=== PATIENT | female | born 1980 | race Caucasian/White ===

== ENCOUNTER 2023-07-15 17:44 | Emergency (ER) | payer OTHER, SELFPAY ==
[2023-07-15 17:46] VITALS: BP 118/78; PULSE 88; RESP 18; TEMP 36.8; O2SAT 97; BMI 28.3
--- NOTE | 2023-07-15 17:47 | NURSING ---
NO OLD EKGS
--- NOTE | 2023-07-15 18:10 | EKG12_ITS ---
Test Reason : PALPS/CP Blood Pressure : / mmHG Vent. Rate : 075 BPM Atrial Rate : 075 BPM P-R Int : 170 ms QRS Dur : 078 ms QT Int : 392 ms P-R-T Axes : 033 059 056 degrees QTc Int : 437 ms Normal sinus rhythm Septal infarct , age undetermined Abnormal ECG Confirmed by SHER MUSA, FELIBERTO ([id number]), news video editor NILDA KHAN ([id number]) on 07/17/2023 12:06:50 PM Referred By: TANVIR Confirmed By:FELIBERTO OLIVAREZ MD
--- NOTE | 2023-07-15 18:11 | ED.VIS.CHEST ---
HPI History of Present Illness Chief Complaint: Chest Pain Informant: patient and spouse/S.O. Narrative Narrative: Very pleasant 43-year-old female presenting to the emergency room with chest pain. Patient states that intermittently over the past week and more so in the past 48 hours she has had episodes where she will abruptly become weak pale and need to sit down. She states her heart rate dips into the 30s as monitored on a home pulse oximeter. She states that this morning was the first time she felt a chest heaviness with her symptoms. No syncope. She denies taking any medications. No activity in particular brings this out. Patient denies any caffeine or alcohol intake. She notes that she has been sleeping okay. She has been under stress. PFSH PFSH Home Medications metoprolol succinate 25 mg tablet,extended release 24 hr 25 mg PO DAILY #20 tabs 07/15/23 [Rx Last Taken Unknown] potassium chloride 20 mEq tablet,extended release 40 meq (2 x 20 mEq) PO DAILY #10 tabs 07/15/23 [Rx Last Taken Unknown] Allergy/AdvReac Type Severity Reaction Status Date / Time No Known Allergies Allergy Verified 07/15/23 17:46 Surgical History H/O: hysterectomy Social History Smoking Status: Never smoker ROS ROS ED Constitutional Constitutional ED: Denies chills, fever(s) or weight loss Eyes Eyes: Denies change in vision or diplopia ENT ENT ED: Denies ear pain, rhinorrhea or sore throat Cardiovascular Cardiovascular: Reports chest pain and other Details: Near syncope bradycardia ; Denies orthopnea, palpitations or racing heartbeat Respiratory/Chest Respiratory/Chest: Denies cough, dyspnea or orthopnea Gastrointestinal Gastrointestinal: Denies abdominal pain, diarrhea, nausea or vomiting Genitourinary Genitourinary ED: Denies dysuria, hematuria or urinary frequency Musculoskeletal Musculoskeletal: Denies arthralgias or myalgias Integumentary Denies abscess or rash Neurologic Neurologic: Denies headache(s) or weakness Psychiatric Psychiatric: Denies anxiety, depression, suicidal ideation or suicidal thoughts Endocrine Endocrinology: Denies polydipsia, polyphagia or polyuria Allergic/Immunologic Allergic/Immunologic ED: Denies mouth swelling, tongue swelling or urticaria EXAM Physical Exam Const Vital Signs: 07/15/23 17:46 07/15/23 18:01 07/15/23 18:45 Temperature 98.2 F Temperature Source Temporal Pulse Rate 88 70 Respiratory Rate 18 16 Respiratory Effort Normal Blood Pressure 118/78 116/48 L Blood Pressure Mean 91 70 Pulse Ox 97 99 Oxygen Delivery Method Room Air Room Air 07/15/23 19:16 Temperature Temperature Source Pulse Rate 77 Respiratory Rate 17 Respiratory Effort Blood Pressure 129/63 H Blood Pressure Mean 85 Pulse Ox 98 Oxygen Delivery Method Room Air Positive well nourished and well developed General Appearance ED: well developed HEENT Reports normocephalic, head/scalp atraumatic and moist mucous membranes Eyes PERRL and EOMs intact bilaterally Neck no lymphadenopathy, supple and no JVD Resp normal respiratory effort and clear to auscultation bilaterally Cardio regular rate, regular rhythm and no murmurs GI normal to inspection, nondistended, normoactive bowel sounds and non-tender Palpation: soft Back/Spine no CVA tenderness and normal ROM Extremity normal to inspection General Extremety ED: Negative for edema General Extremity: Negative for edema Neuro oriented x3 and CN's II-XII intact bilaterally Sensorium / Orientation: alert Motor Exam: strength 5/5 throughout Psych mental status grossly normal Mood & Affect: Negative for depressed or tearful Skin no rashes or lesions noted and no wounds MDM MDM MDM Narrative Medical decision making narrative: Patient initially assessed in a sinus rhythm. She then changed her rhythm to a ventricular bigeminy and then ventricular trigeminy. She was asymptomatic during the trigeminy but symptomatic during bigeminy. However her blood pressure was not changed she states that she felt weaker and felt cool and clammy. Troponin is at 4. CBC normal. BMP shows a potassium of 3.4 TSH 2.23. Vitaped interpretation of the chest x-ray is no acute process. Patient's potassium will be replaced. I spoke with cardiology who recommends outpatient stress test and the administration of metoprolol 25 mg daily. History & Record Review Discussion w/independent historian: Patient and Significant other Lab Data Attestation: I reviewed the patient's lab results. Labs: Laboratory Results - last 24 hr 07/15/23 17:55 WBC 9.0 RBC 4.71 Hgb 14.3 Hct 43.9 MCV 93.2 MCH 30.4 MCHC 32.6 RDW Std Deviation 44.3 H RDW Coeff of Chantel 13.0 Plt Count 406 MPV 9.4 Immature Gran % (Auto) 0.200 Neut % (Auto) 71.5 H Lymph % (Auto) 17.8 L Aiken % (Auto) 9.2 Eos % (Auto) 0.7 Baso % (Auto) 0.6 Absolute Neuts (auto) 6.4 Absolute Lymphs (auto) 1.60 Nucleated RBC % 0 Sodium 139 Potassium 3.4 L Chloride 107 Carbon Dioxide 29.0 Anion Gap 3 L BUN 15 Creatinine 0.76 Estim Creat Clear Calc 84.12 Est GFR (MDRD) Af Amer 108 Est GFR (MDRD) Non-Af 89 BUN/Creatinine Ratio 19.7 Glucose 98 Calcium 8.7 Magnesium 2.4 Troponin I High Sens 4 TSH 2.23 Radiography Diagnostic Testing: Clinical Impression(s) from Imaging Studies Chest X-Ray 07/15/23 18:20 IMPRESSION: No radiographic evidence of acute cardiopulmonary disease. Electronically Signed: Jay Cole MD at 18:57 EST , EKG Initial EKG: Attestation: I personally reviewed and interpreted this EKG as follows: Comments: Normal sinus rhythm with a ventricular rate of 75 bpm. Management Discussion w/another healthcare provider: Magazine Grinder Loader (Dr. Boyce (Cardiology)) Discharge Plan Triage Chief Complaint: Chest Pain Other Complaint: Palpitations ED Provider: Nain Hackett Dx/Rx/DC Orders Clinical Impression: Heart palpitations, Ventricular bigeminy, Chest pain, Acute hypokalemia Instructions: Ventricular Arrhythmia Prescriptions: New potassium chloride 20 mEq tablet extended release 40 meq PO DAILY Qty: 10 0RF metoprolol succinate 25 mg tablet extended release 24 hr 25 mg PO DAILY Qty: 20 0RF Primary Care Provider: Care Physician,No Primary Referrals: Ladarius Boyce MD [Med Staff - Active Staff] - As soon as possible Care Physician,No Primary [Primary Care Provider] - Disposition Disposition: Home, Self Care
--- NOTE | 2023-07-15 18:20 | RAD_ITS ---
INDICATION: chest pain EXAMINATION/TECHNIQUE: X-RAY - XR Chest 1 View COMPARISON: None. FINDINGS: Cardiac silhouette normal in size. No liam airspace consolidation is appreciated. There is some slight hazy opacity at the lower lungs which could reflect overlying soft tissue shadows. No pneumothorax. No pleural effusion. No adenopathy. No acute bony pathology. RAD/Chest 1 View (Portable) IMPRESSION: No radiographic evidence of acute cardiopulmonary disease. Electronically Signed: Jay Cole MD at 18:57 EST ,
[2023-07-15 18:29] LABS: Absolute Neutrophil Count 6.4 X10^3/uL (2.0-7.7); Basophil# 0.05 X10^3/uL; Basophil% 0.6 % (0-1); Eosinophil# 0.06 X10^3/uL; Eosinophils% 0.7 % (0-5); Hematocrit 43.9 % (37-47); Hemoglobin 14.3 g/dL (12.0-15.0); Lymphocyte % 17.8 % (19-41); Mean Corp Hgb Conc 32.6 g/dL (32-36); Mean Corpuscular Hgb 30.4 pg (27.0-32.0); Mean Corpuscular Volume 93.2 fL (81-99); Mean Platelet Vol. 9.4 fl (6.2-12.0); Monocyte# 0.83 X10^3/uL; Monocyte% 9.2 % (0-10); NRBC Flagged by Analyzer 0 % (0-5); Neutrophil # 6.42 X10^3/uL (2.7-7.7); Neutrophil % 71.5 % (47-70); Platelet Count 406 K/mm3 (150-450); RBC Distribution Width SD 44.3 fl (35.1-43.9); Red Blood Count 4.71 M/mm3 (4.2-5.4)
[2023-07-15 18:45] VITALS: BP 116/48; PULSE 70; RESP 16; O2SAT 99
[2023-07-15 18:50] LABS: Anion Gap 3 (5-15); BUN 15 mg/dL (7-18); BUN/Creat Ratio 19.7 RATIO (10-20); Calcium,Total 8.7 mg/dL (8.5-10.1); Chloride 107 mmol/L (98-107); Creatinine, Serum 0.76 mg/dL (0.55-1.02); EST Glomerular Filtration Rate 89 mL/min (>60); Est Glom Filt Rate - Afr Amer 108 mL/min (>60); Estimated Creatinine Clearance 84.12 ml/min; Glucose 98 mg/dL (74-106); Magnesium 2.4 mg/dL (1.6-2.6); Potassium 3.4 mmol/L (3.5-5.1); Sodium Level 139 mmol/L (136-145); Thyroid Stim Hormone (TSH) 2.23 uIU/mL (0.358-3.74); Troponin-I HS 4 pg/mL (3.0-54.0)
--- NOTE | 2023-07-15 18:59 | EKG12_ITS ---
Test Reason : CP Blood Pressure : / mmHG Vent. Rate : 077 BPM Atrial Rate : 077 BPM P-R Int : 168 ms QRS Dur : 078 ms QT Int : 410 ms P-R-T Axes : 051 068 074 degrees QTc Int : 463 ms Sinus rhythm with frequent Premature ventricular complexes Septal infarct , age undetermined Abnormal ECG Confirmed by SHER MUSA, FELIBERTO ([id number]), editor at large NILDA KHAN ([id number]) on 07/17/2023 12:11:30 PM Referred By: TANVIR Confirmed By:FELIBERTO OLIVAREZ MD
[2023-07-15 19:16] VITALS: BP 129/63; PULSE 77; RESP 17; O2SAT 98
--- NOTE | 2023-07-15 19:16 | NURSING ---
Pt assisted to ambulate to the bathroom. No dizziness noted with activity. Pt assisted back to bed.
[2023-07-15] MEDS: Potassium Chloride Oral Tablet 20 MEQ 40 MEQ PO (20:08)
[2023-07-15 20:24] VITALS: BP 109/57; PULSE 72; RESP 17; O2SAT 97
== END 2023-07-15 20:56 | disposition home or self-care (01) ==
PROVIDERS: Emergency Provider Emergency Medicine; Visit Provider Emergency Medicine
DX: R00.2 Palpitations (principal); E87.6 Hypokalemia; R07.9 Chest pain, unspecified; I49.8 Other specified cardiac arrhythmias; Z90.710 Acquired absence of both cervix and uterus
CPT/HCPCS: 71045; 80048; 83735; 84443; 84484; 85025; 93005; 99284; A4216

== ENCOUNTER → 2023-08-03 | Outpatient (CLI) | payer SELFPAY ==
[2023-08-03 13:22] LABS: Anion Gap 5 (5-15); BUN 9 mg/dL (7-18); BUN/Creat Ratio 15.3 RATIO (10-20); Calcium,Total 8.8 mg/dL (8.5-10.1); Chloride 109 mmol/L (98-107); Cholesterol 147 mg/dL (200); Creatinine, Serum 0.59 mg/dL (0.55-1.02); EST Glomerular Filtration Rate 119 mL/min (>60); Est Glom Filt Rate - Afr Amer 144 mL/min (>60); Glucose 86 mg/dL (74-106); High Density Lipoprotein 46 mg/dL; Sodium Level 141 mmol/L (136-145); Triglycerides 82 mg/dL; Very Low Density Lipoprotein 16 mg/dL (5-40)
== END | disposition home or self-care (01) ==
PROVIDERS: Referring Provider Internal Medicine Cardiovascular Disease; Visit Provider Internal Medicine Cardiovascular Disease
DX: R06.09 Other forms of dyspnea (principal); I49.3 Ventricular premature depolarization; R07.9 Chest pain, unspecified; E87.6 Hypokalemia; E78.5 Hyperlipidemia, unspecified; R00.2 Palpitations
CPT/HCPCS: 36415; 80048; 80061

== ENCOUNTER → 2023-08-07 | Outpatient (CLI) | payer SELFPAY, OTHER ==
--- NOTE | 2023-08-07 06:57 | ECHOD_ITS ---
Reason For Study: Chest Pain Procedure This was a 2D Doppler, Color Flow transthoracic echocardiogram. Exam performed in department. Left Ventricle Normal LV size. Left ventricular systolic function is normal. The estimated ejection fraction is 65 %. Stage 1 diastolic dysfunction. No regional wall motion abnormalities noted. Right Ventricle Normal RV size. Normal systolic function. Atria Normal left atrium. Normal right atrium. Patent foramen ovale. Mitral Valve Normal mitral valve. Tricuspid Valve Normal tricuspid valve. Aortic Valve Normal aortic valve. Trisinus/trileaflet aortic valve. Pulmonic Valve Normal pulmonic valve. Great Vessels Normal aortic root. The pulmonary artery is normal size. Normal inferior vena cava. Pericardium/Pleural No pericardial effusion. MMode/2D Measurements & Calculations LVIDd: 4.8 cm IVSd: 0.81 cm Ao root diam: 2.7 cm LVIDs: 3.2 cm LVPWd: 0.78 cm LA dimension: 3.3 cm RVDd: 3.3 cm FS: 32.1 % LAV(MOD-bp): 44.7 ml LVAd ap4: 22.6 cm2 SV(MOD-sp4): 39.1 ml LAV(MOD-bp) Indexed: 24.7 ml/m2 LVLd ap4: 7.0 cm LAV(MOD-sp2): 43.7 ml EDV(MOD-sp4): 62.0 ml LAV(MOD-sp4): 44.5 ml EDV(sp4-el): 62.4 ml LVAs ap4: 11.7 cm2 LVLs ap4: 5.2 cm ESV(MOD-sp4): 22.9 ml ESV(sp4-el): 22.1 ml EF(MOD-sp4): 63.0 % EF(sp4-el): 64.6 % SV(sp4-el): 40.3 ml LA A4 area: 17.0 cm2 RA A4 area: 12.0 cm2 TAPSE: 2.5 cm Time Measurements MV dec time: 0.25 sec Doppler Measurements & Calculations MV E max delio: 66.1 cm/sec Lat Peak E' Delio: 3.7 cm/sec Med Peak E' Delio: 11.8 cm/sec MV A max delio: 50.0 cm/sec E/E' lat: 18.0 E/E' med: 5.6 MV E/A: 1.3 MV V2 max: 73.5 cm/sec MV P1/2t max delio: 74.2 cm/sec Ao V2 max: 118.7 cm/sec MV max P.2 mmHg MV P1/2t: 87.0 msec Ao max P.6 mmHg MV V2 mean: 36.5 cm/sec MV dec slope: 249.9 cm/sec2 Ao V2 mean: 91.7 cm/sec MV mean P.66 mmHg Ao mean P.6 mmHg MV V2 VTI: 26.7 cm MVA(P1/2t): 2.5 cm2 Ao V2 VTI: 25.4 cm AV (velocity ratio): 0.86 LV V1 max: 113.6 cm/sec PA V2 max: 115.2 cm/sec LV V1 max P.2 mmHg PA V2 mean: 90.9 cm/sec LV V1 mean P.2 mmHg LV V1 mean: 84.7 cm/sec LV V1 VTI: 21.8 cm ECHO/Echo Complete Interpretation Summary Normal LV size. Left ventricular systolic function is normal. The estimated ejection fraction is 65 %. Stage 1 diastolic dysfunction. Patent foramen ovale. Structurally normal valves. Ordering Physician: Ladarius Boyce Referring Physician: Ladarius Boyce Performed By: Justice Vallecillo RCS
--- NOTE | 2023-08-07 16:02 | STRESSREP ---
Stress Test Report Exercise myocardial perfusion stress test. 43-year-old lady with a history of chest pain and palpitations Stress protocol: Resting EKG demonstrates sinus rhythm with frequent premature ventricular complexes and a rate of 69 bpm resting blood pressure is 104/68 mmHg. The patient exercised according to the regular Travis protocol for a total duration of 6 minutes and 15 seconds attaining a maximum heart rate of 153 bpm which was 85% of maximum predicted heart rate; the maximum workload was 7.7 metabolic equivalents. At rest there were no ST or T wave changes noted to suggest ischemia and at peak exercise upsloping ST changes only were noted which did not meet the criteria for ischemia. The frequency of the PVCs reduced significantly with exercise and no clinical angina was noted the test was terminated due to the target heart rate being achieved/fatigue. The peak blood pressure was 134/70 mmHg. Rate-pressure product was 20,300. Myocardial perfusion protocol. 11.5 mCi of technetium 99m sestamibi was injected at rest. The patient exercised according to regular Travis protocol for total duration of 6 minutes and 15 seconds and at peak exercise 33.7 mCi of technetium 99m sestamibi was injected stress images were obtained stress and rest images were reconstructed in comparing the short axis vertical long and horizontal long axis. Gated images were also obtained. Perfusion SPECT analysis: Review of the stress images demonstrate normal uptake of tracer noted in all areas of the myocardium. The resting images similarly demonstrate normal uptake of tracer noted in all areas of the myocardium. No areas of reversibility are noted to suggest ischemia no previous infarct was noted. Gated SPECT analysis: The gated ejection fraction is 75%. Conclusion: Normal exercise myocardial perfusion stress test at a moderate workload Preserved ejection fraction.
== END | disposition home or self-care (01) ==
PROVIDERS: Referring Provider Internal Medicine Cardiovascular Disease; Visit Provider Internal Medicine Cardiovascular Disease
DX: R00.2 Palpitations (principal); R07.9 Chest pain, unspecified; E87.6 Hypokalemia; I49.3 Ventricular premature depolarization; R06.09 Other forms of dyspnea
CPT/HCPCS: 78452; 93017; 93225; 93226; 93306; A9500; A4216

== ENCOUNTER → 2023-11-14 | Outpatient (CLI) | payer OTHER, SELFPAY ==
[2023-11-14 15:23] LABS: Absolute Lymphocyte Count 2.23 X10^3/uL (0.83-4.51); Absolute Neutrophil Count 3.9 X10^3/uL (2.0-7.7); Basophil# 0.03 X10^3/uL; Basophil% 0.4 % (0-1); Eosinophil# 0.09 X10^3/uL; Eosinophils% 1.3 % (0-5); Hematocrit 41.2 % (37-47); Hemoglobin 13.7 g/dL (12.0-15.0); Lymphocyte # 2.23 X10^3/ul (0.83-4.51); Lymphocyte % 33.1 % (19-41); Mean Corp Hgb Conc 33.3 g/dL (32-36); Mean Corpuscular Hgb 30.8 pg (27.0-32.0); Mean Corpuscular Volume 92.6 fL (81-99); Mean Platelet Vol. 9.7 fl (6.2-12.0); Monocyte# 0.49 X10^3/uL; Monocyte% 7.3 % (0-10); NRBC Flagged by Analyzer 0 % (0-5); Neutrophil # 3.89 X10^3/uL (2.7-7.7); Neutrophil % 57.8 % (47-70); Platelet Count 331 K/mm3 (150-450); RBC Distribution Width CV 13.8 % (11.6-14.6); RBC Distribution Width SD 47.5 fl (35.1-43.9); Red Blood Count 4.45 M/mm3 (4.2-5.4); White Blood Count 6.7 K/mm3 (4.4-11.0)
[2023-11-14 16:27] LABS: Anion Gap 6 (5-15); BUN 7 mg/dL (7-18); BUN/Creat Ratio 10.6 RATIO (10-20); Calcium,Total 8.9 mg/dL (8.5-10.1); Chloride 107 mmol/L (98-107); Creatinine, Serum 0.66 mg/dL (0.55-1.02); EST Glomerular Filtration Rate 105 mL/min (>60); Est Glom Filt Rate - Afr Amer 127 mL/min (>60); Glucose 83 mg/dL (74-106); Magnesium 2.4 mg/dL (1.6-2.6); Potassium 3.7 mmol/L (3.5-5.1); Sodium Level 140 mmol/L (136-145); T4 Total, Thyroxin 7.5 ug/dL (4.8-13.9); Thyroid Stim Hormone (TSH) 1.24 uIU/mL (0.358-3.74)
== END | disposition home or self-care (01) ==
LOC: LAB 14:28
PROVIDERS: Referring Provider Nurse Practitioner Gerontology; Visit Provider Nurse Practitioner Gerontology
DX: R42 Dizziness and giddiness (principal); R00.2 Palpitations; R06.09 Other forms of dyspnea
CPT/HCPCS: 36415; 80048; 83735; 84436; 84443; 85025

== ENCOUNTER → 2023-12-13 | Outpatient (CLI) | payer OTHER, SELFPAY ==
[2023-12-13 12:02] LABS: Anion Gap 2 (5-15); BUN 10 mg/dL (7-18); BUN/Creat Ratio 16.8 RATIO (10-20); Chloride 108 mmol/L (98-107); EST Glomerular Filtration Rate 118 mL/min (>60); Est Glom Filt Rate - Afr Amer 142 mL/min (>60); Glucose 86 mg/dL (74-106); Potassium 3.9 mmol/L (3.5-5.1); Sodium Level 138 mmol/L (136-145)
== END | disposition home or self-care (01) ==
LOC: LAB 11:00
PROVIDERS: PCP Physician Assistant; Referring Provider Internal Medicine Cardiovascular Disease; Visit Provider Internal Medicine Cardiovascular Disease
DX: Z86.79 Personal history of other diseases of the circulatory system (principal); Z86.39 Personal history of other endocrine, nutritional and metabolic disease; Q21.12 Patent foramen ovale
CPT/HCPCS: 36415; 80048

== ENCOUNTER → 2025-05-14 | Outpatient (CLI) | payer SELFPAY, OTHER ==
--- OUTSIDE RECORDS SUMMARY | 2025-05-14 05:59 | XMS RPT_ITS | CCD ---
Author Organization [facility] Care Team Providers Care Certified Green Building Engineer Name Role Phone KOBI CORTES Attending Unavailable KOBI CORTES Primary Care Unavailable KOBI CORTES Admitting Unavailable Care Physician, No Primary Primary Care Provider Unavailable Care Physician, No Primary Referring Provider Un available Austen, Dr. Durand Attending Provider [phone] Austen, Dr. Durand Referring Provider [phone] Austen, Dr. Durand Other Provider Dr. Rayray Rangel Attending Provider [phone] Rajesh BRYAN, WILBERTO Dawson Attending Provider Care Physician, No Primary Primary Care Provider Unavailable Care Physician, No Primary Referring Provider Un available Austen, Dr. Durand Attending Provider [phone] Austen, Dr. Durand Referring Provider [phone] Austen, Dr. Durand Other Provider Dr. Rayray Rangel Attending Provider [phone] WILBERTO Mena NP Attending Provider WILBERT Saeed Attending Provider Care Physician, No Primary Primary Care Provider Unavailable Care Physician, No Primary Referring Provider Un available Austen, Dr. Durand Attending Provider [phone] WILBERTO Mena NP Attending Provider Reina Conrad PA-C Unavailable [phone] MARIA INES TIERNYE Attending Unavailable REINA CONRAD Referring Unavailable THIAGO GUTIERREZ Referring Unavailable Reina Conrad Referring Unavailable Reina Conrad Attending Unavailable Conrad, Reina Primary Care Unavailable Medications Current Medications Medication Drug Class(es) Dates Sig (Normalized) Sig (Original) aspirin 81 mg delayed release oral tablet (3 sources) Platelet Aggregation Inhibitor, Nonsteroidal Anti-inflammatory Drug Start: 09-19-2023 take 81 mg by mouth once daily Aspirin Active 81 MG PO DAILY September 19, 2023 1:00am End: 12-20-2024 take 1 tablet by mouth once daily Aspirin 81 mg tab Take 81 mg by mouth once daily. 12/20/2024 Discontinued (Clinical Decision) 24 hr metoprolol succinate 25 mg extended release oral tablet (11 sources) beta-Adrenergic Kaci Start: 11-02-2024 take 1 tablet by mouth once daily metoprolol succinate ER (TOPROL XL) 25 mg 24 hr tablet Take 1 tablet by mouth once daily. 11/02/2024 Active Start: 12-13-2023 take 25 mg by mouth once daily Metoprolol Succinate Active 25 MG PO DAILY December 13, 2023 12:00am Start: 11-14-2023 End: 12-13-2023 take 25 mg by mouth once daily Metoprolol Tartrate Dis continued 25 MG PO DAILY November 14, 2023 12:00am December 13, 2023 10:49am Start: 08-03-2023 End: 09-19-2023 take 25 mg by mouth twice daily Metoprolol Tartrate Discontinued 25 MG PO TWICE A DAY August 03, 2023 1:00am September 19, 2023 11:10am Start: 07-15-2023 End: 08-03-2023 take 25 mg by mouth once daily Metoprolol Succinate Di scontinued 25 MG PO DAILY July 15, 2023 1:00am August 03, 2023 12:55pm MULTIVITAMIN ORAL (1 source) take 1 tablet by rema th once daily MULTIVITAMIN ORAL Take 1 tablet by mouth once daily. Active Completed/Discontinued Medications Medication Drug Class(es) Dates Sig (Normalized) Sig (Original) amiodarone hydrochloride 200 mg oral tablet (2 sources) Antiarrhythmic Start: 09-19-2023 End: 11-14-2023 take 200 mg by mouth once daily Amiodarone Discontinued 200 MG PO DAILY September 19, 2023 1:00am November 14, 2023 2:49pm meclizine hydrochloride 25 mg oral tablet (2 sources) Antiemetic Start: 11-14-2023 End: 12-13-2023 take 25 mg by mouth three times daily Meclizine Discontinued 25 MG PO THREE TIMES A DAY November 14, 2023 12:00am December 13, 2023 10:22am pantoprazole 20 mg delayed release oral tablet (4 sources) Proton Pump Inhibitor Start: 09-19-2023 End: 12-13-2023 take 1 tablet by mouth twice daily Pantoprazole (Protonix) 20 mg tablet,delayed release (DR/EC) Discontinued 20 MG PO TWICE A DAY November 14, 2023 2:50pm December 13, 2023 10:22am potassium chloride 20 meq extended release oral tablet (4 sources) Start: 07-15-2023 End: 11-14-2023 take 40 mEq by mouth once daily Potassium Chloride Discontinued 40 MEQ PO DAILY July 15, 2023 1:00am November 14, 2023 2:50pm Problems Problem Classification Problem Date Documented Da te Episodic/Chronic Cardiac and circulatory congenital anomalies (13 sources) Patent foramen ovale; Translations: [Patent foramen ovale] Onset: 12-20-2024 09-19-2023 Chronic Cardiac dysrhythmias (9 sources) Ventricular bigeminy; Translations: [Other specified cardiac arrhythmias] 07-15-2023 Chronic Cardiac dysrhythmias (13 sources) Palpitations; Translations: [Palpitations] Onset: 12-20-2024 07-15-2023 Episodic Conditions associated with dizziness or vertigo (7 sources) Benign paroxysmal positional vertigo; Translations: [Benign paroxysmal vertigo, unspecified ear] 11-14-2023 Episodic Fluid and electrolyte disorders (7 sources) Acute hypokalemia; Translations: [Hypokalemia] 07-15-2023 Episodic Nonspecific chest pain (11 sources) Chest pain; Translations: [Chest pain, unspecified] 07-15-2023 Episodic Other circulatory disease (1 source) History of paroxysmal atrial tachycardia; Translations: [Personal history of other diseases of the circulatory system] 12-13-2023 Episodic Other circulatory disease (1 source) Personal history of other diseases of the circulatory system; Translations: [Personal history of other diseases of circulatory system] 12-13-2023 Episodic Other lower respiratory disease (3 sources) Dyspnea on exertion; Translations: [Other forms of dyspnea] 08-03-2023 Episodic Other lower respiratory disease (3 sources) Other forms of dyspnea; Translations: [Other respiratory abnormalities] Onset: 05-02-2025 08-03-2023 Episodic Other nutritional; endocrine; and metabolic disorders (2 sources) H/O: metabolic disorder; Translations: [Personal history of other endocrine, nutritional and metabolic disease] 09-19-2023 Episodic Other nutritional; endocrine; and metabolic disorders (3 sources) Personal history of other endocrine, nutritional and metabolic disease; Translations: [Personal history of other endocrine, metabolic, and immunity disorders] 09-19-2023 Episodic Unclassified (1 source) PFO (patent foramen ovale) (HCC); Translations: [PFO (patent foramen ovale) (HCC)] Onset: 12-20-2024 Results Test Name Value Interpretation Reference Range Facility CNOVon 12-20-2024 CNOV Office Visit (CATHMN) MADDISONYANAGRABIEL ([id number]) 1980 F Date Time Provider Department 12/20/24 10:30 AM MARIA INES TIERNEY CATHRANDALL During your visit today, we recorded the following information about you: Pulse Respiration Blood pressure Weight 70/minute 18/minute 105/70 69.4 kg Height 1.753 m Maria Ines Tierney MD 12/20/2024 11:33 AM Signed [facility] [place] [facility] Gr[facility] Department of Cardiovascular Medicine SECTION OF INTERVENTIONAL CARDIOLOGY OUTPATIENT VISIT DATE December 19, 2024 OUTPATIENT VISIT TYPE NEW PRIMARY CARE PHYSICIAN: To use this Smartlink, specify the provider ID whose address you want to display, e.g., .PROVADDR[1 (where 1 is the provider ID). REFERRING PHYSICIAN: Reina Conrad [address] [facility] [id number] CHIEF COMPLAINT: PFO Palpitations Fatigue shortness of breath HISTORY OF PRESENT ILLNESS: Ms. Craven is a 44 year old lady who is otherwise fit and healthy who has been sent along by a local heart team in [place] for further assessment of her most recently revealed PFO on surface echocardiography. She was found to have palpitations and occasional bigeminy about a year ago. She underwent echocardiography and nuclear stress perfusion testing all of which were normal. An incidental PFO was found. She was told she needed to stay on aspirin to prevent strokes and to come and seek further opinion regarding possible transcatheter PFO closure. She has never had a stroke. Since starting metoprolol for the palpitations and bigeminy, this has helped her palpitations but she is does describe the more fatigue and perhaps some more wheezing. NURSING INTAKE: She has been experiencing palpitations that led to x2 ER visits, which led to her following with Dr. Juan with [facility], who ordered an echocardiogram that revealed a PFO. She denies chest pain, syncope, claudication, leg swelling, cough, and wheezing. Diet / Nutrition: regular Weight: stable Exercise: no 11/11/24 STRESS TEST 11/11/24 ECHO PAST MEDICAL HISTORY Diagnosis Date Irregular heartbeat PFO (patent foramen ovale) (HCC) PAST SURGICAL HISTORY Procedure Laterality Date EXT HYSTERECTOMY,W/PARTI AL VAGINECTO HIATAL HERNIA REPAIR HX SOCIAL HISTORY Social History Tobacco Use Smoking status: Never Smokeless tobacco: Never Vaping Use Vaping status: Never Used Substance Use Topics Alcohol use: Not Currently Drug use: Never FAMILY HISTORY Problem Relation Age of Onset No Known Problems Mother No Known Problems Father No Known Problems Maternal Grandmother No Known Problems Maternal Grandfather No Known Problems Paternal Grandmother No Known Problems Paternal Grandfather ALLERGIES: ALLERGIES No Known Allergies MEDICATIONS: metoprolol succinate ER (TOPROL XL) 25 mg 24 hr tablet Take 1 tablet by mouth once daily. MULTIVITAMIN ORAL Take 1 tablet by mouth once daily. REVIEW OF SYSTEMS: GENERAL: no fever, no chills, and no change in weight HEENT: no headaches, no hearing loss, no difficulty swallowing, no visual changes SKIN: no rashes, no lesions, and no ulcers RESPIRATORY: shortness of breath and dyspnea on exertion CARDIOVASCULAR: dizziness and lightheadedness GASTROINTESTINAL: no abdominal pain, no nausea, no vomiting, no difficulty or painful swallowing, and no melanotic stools GENITOURINARY: no dysuria, no frequency, and no nocturia MUSCULOSKELETAL: no joint pain, no joint swelling, no muscle pain or myalgias, and no pain with walking NEUROLOGIC: no numbness, no tingling, and no sensation of pins and needles HEMATOLOGY: no bruising easily and no prolonged bleeding ENDOCRINE: no cold or heat intolerance, no polyuria, no polydipsia, no goiter, no diabetes, and no thyroid disease PSYCH: no mood disorders, no recent psychosocial stressors, and sleep disturbance PHYSICAL EXAMINATION: BP 105/70 Pulse 70 Resp 18 Ht 5' 9" (1.75m) Wt 153 lb (69.4kg) SpO2 96% BMI 22.58 kg/(m2). General: Well appearing, in no acute distress, speaking in complete sentences. Skin: No clubbing, no cyanosis. Head/Eyes: Extra ocular movements intact Mouth: Teeth in good repair. Neck: No jugular venous distention, no carotid bruits, carotids have a normal upstroke, no palpable thyromegaly. Lungs: Clear to auscultation and no rales Heart: Regular rhythm, PMI not displaced, S1, S2 normal, no S3, no S4, no heaves, no rub and no murmur. PV Pulses:Pulses intact Abdomen: Soft, nontender, bowel sounds normal, no palpable organomegaly, no bruits. Extremities: No peripheral edema . Grade 2/4 distal pulses bilaterally. Edema Scale: No Musculoskeletal: Normal gait and ambulation Neuro: Oriented to time, place and person CARDIOVASCULAR MEDICINE TESTING: No Cardiovascular testing perfomed today. I have personally review (more content not included)... Normal [facility] Kira 12-19-2024 OSCAR Telephone (TEA) GRABIEL CRAVEN ([id number]) 1980 F Date Time Provider Department 12/19/24 MARIA INES TIERNEY During your visit today, we recorded the following information about you: Serge Segundo 12/19/2024 10:59 AM Signed Pt has been notified about the new appointment date and time. Pt's friend took the message and will make sure patient have the new information. Allergies As of Date: 12/19/2024 (Not on File) Date Reviewed: Never Reviewed Reason for Visit: Appointment [186] Problem List As Of Date: 12/19/2024 (None) Encounter Status:Closed by SERGE SEGUNDO on 12/19/24 [facility] CNCOon 11-19-2024 CNCO Letter Text [facility] CNPNon 11-19-2024 CNPN Telephone (REFPHY) GRABIEL CRAVEN ([id number]) 1980 F Date Time Provider Department 11/19/24 NO ONE (HISTORICAL) REFPHY During your visit today, we recorded the following information about you: Paula Jerome 11/19/2024 10:25 AM Signed Patient: Grabiel Sheldon Craven Date of : 1980 Patient phone number: [phone] Referring Provider for the encounter: Reina Conrad Requesting Provider: Cardiology Reason for requesting visit (RFV/signs and symptoms/diagnosis): patent foramen ovale Person calling: self Return call to: self Medical Records/Insurance Card scanned into Convrrt: No Comments: n/a Allergies As of Date: 11/19/2024 (Not on File) Date Reviewed: Never Reviewed Reason for Visit: Appointment [186] Problem List As Of Date: 11/19/2024 (None) Encounter Status:Closed by PAULA JEROME on 11/19/24 [facility] CNPN Telephone (CATHMN) GRABIEL CRAVEN ([id number]) 1980 F Date Time Provider Department 11/19/24 RIVAS CRANDALL During your visit today, we recorded the following information about you: Juan J Ibarra 11/19/2024 2:22 PM Signed Scheduled from referring physician box; New patient letter has been sent via mail for appt on 12/20/24 Allergies As of Date: 11/19/2024 (Not on File) Date Reviewed: Never Reviewed Problem List As Of Date: 11/19/2024 (None) Encounter Status:Closed by JUAN J IBARRA on 11/19/24 [facility] Kira 11-12-2024 CNPN Telephone (BARRIEMN) GRABIEL CRAVEN ([id number]) 1980 F Date Time Provider Department 11/12/24 [facility] PROVIDER SHAUNA During your visit today, we recorded the following information about you: Tiffany Carty 11/12/2024 10:06 AM Signed Received outside records have been uploaded in Convrrt. Tiffany Carty November 12, 2024 10:05 AM Allergies As of Date: 11/12/2024 (Not on File) Date Reviewed: Never Reviewed Reason for Visit: Received Outside Medical Records [[id number]] Problem List As Of Date: 11/12/2024 (None) Encounter Status:Closed by TIFFANY CARTY on 11/12/24 [facility] Basophil percentageOrdered B y: Ladarius Boyce on 12-13-2023 Chloride [Moles/Vol] 108 mmol/L 98-107 [facility] Glucose [Mass/Vol] 86 mg/dL 74-106 [facility] Potassium [Moles/Vol] 3.9 mmol/L 3.5-5.1 [facility] Sodium [Moles/Vol] 138 mmol/L 136-145 [facility] Laboratory - Chemistry and C hemistry - challengeOrdered By: Ladarius Boyce on 12-13-2023 CO2 [Moles/Vol] 28.0 mmol/L 21.0-32.0 [facility] Urea nitrogen/Creatinine [Mass ratio] 16.8 mg/mg 10-20 [facility] No Panel InformationOrdered By: Ladarius Boyce on 12-13-2023 Estimated GFR (MDRD) Amer 142 mL/min >60 [facility] Comment on above: GFR Calc Estimated GFR (MDRD) Non-Af Amer 118 mL/min >60 [facility] Comment on above: Non- GFR Calc Serum or plasma calcium joanie urement (mass/volume)Ordered By: Ladarius Boyce on 12-13-2023 Calcium [Mass/Vol] 9.0 mg/dL 8.5-10.1 [facility] Serum or plasma creatinine m easurement (mass/volume)Ordered By: Ladarius Boyce on 12-13-2023 Creatinine [Mass/Vol] 0.60 mg/dL 0.55-1.02 [facility] Comment on above: The validity of the calculated GFR & GFRAA in patients over 70 years has not been determined. Clinical correlation is essential. Serum or plasma urea nitroge n measurement (mass/volume)Ordered By: Ladarius Boyce on 12-13-2023 Urea nitrogen [Mass/Vol] 10 mg/dL 7-18 [facility] Thin prep Papanicolaou smear with manual screeningOrdered By: Ladarius Boyce on 12-13-2023 Thin prep Papanicolaou smear with manual screening 2 5-15 [facility] Absolute lymphocyte countOrd ered By: Eunice Mena on 11-14-2023 Lymphocytes Auto (Unsp spec) [#/Vol] 2.23 10*3/uL 0.83-4.51 [facility] Automated lymphocyte count a s percentage of total leukocytesOrdered By: Eunice Mena on 11-14-2023 Lymphocytes/100 WBC Auto (Unsp spec) 33.1 % 19-41 [facility] Basophil percentageOrdered B y: Eunice Mena on 11-14-2023 Basophils/100 WBC (Bld) 0.4 % 0-[address] [facility] Chloride [Moles/Vol] 107 mmol/L 98-107 [facility] Eosinophils/100 WBC (Bld) 1.3 % 0-5 [facility] Glucose [Mass/Vol] 83 mg/dL 74-106 [facility] Hemoglobin (Bld) [Mass/Vol] 13.7 g/dL 12.0-15.0 [facility] Monocytes/100 WBC (Bld) 7.3 % 0-[address] [facility] Neutrophils (Bld) [#/Vol] 3.9 10*3/uL 2.0-7.7 [facility] Neutrophils/100 WBC (Bld) 57.8 % 47-70 [facility] Potassium [Moles/Vol] 3.7 mmol/L 3.5-5.1 [facility] Sodium [Moles/Vol] 140 mmol/L 136-145 [facility] WBC (Bld) [#/Vol] 6.7 10*3/uL 4.4-11.0 [facility] Determination of erythrocyte mean corpuscular volume (MCV)Ordered By: Eunice Mena on 11-14-2023 MCV (RBC) [Entitic vol] 92.6 fL 81-[address] [facility] Erythrocyte distribution wid th ratioOrdered By: Eunice Mena on 11-14-2023 Erythrocyte distribution width (RBC) [Ratio] 13.8 % 11.6-14.6 [facility] Erythrocyte distribution wid th standard deviationOrdered By: Eunice Mena on 11-14-2023 Erythrocyte distribution width (RBC) [Entitic vol] 47.5 fL 35.1-43.9 [facility] Hematocrit Auto (Bld) [Volum e fraction]Ordered By: Eunice Mena on 11-14-2023 Hematocrit (Bld) [Volume fraction] 41.2 % 37-47 [facility] Immature granulocytes/100 WB C Auto (Bld)Ordered By: Eunice Mena on 11-14-2023 Immature granulocytes/100 WBC (Bld) 0.100 % 0.0-0.9 [facility] Comment on above: IG% - Immature Granu locytes (promyelocytes, myelocytes and metamyelocytes) > 1% indicates that a LEFT SHIFT is Present. Laboratory - Chemistry and C hemistry - challengeOrdered By: Eunice Mena on 11-14-2023 CO2 [Moles/Vol] 27.0 mmol/L 21.0-32.0 [facility] Magnesium [Mass/Vol] 2.4 mg/dL 1.6-2.6 [facility] Urea nitrogen/Creatinine [Mass ratio] 10.6 mg/mg 10-20 [facility] Laboratory - Hematology and Cell countsOrdered By: Eunice Mena on 11-14-2023 MCH (RBC) [Entitic mass] 30.8 pg 27.0-32.0 [facility] MCHC (RBC) [Mass/Vol] 33.3 g/dL 32-36 [facility] Nucleated RBC/100 WBC (Bld) [Ratio] 0 % 0-5 [facility] Platelet mean volume (Bld) [Entitic vol] 9.7 fL 6.2-12.0 [facility] Platelets (Bld) [#/Vol] 331 10*3/uL 150-450 [facility] No Panel InformationOrdered By: Eunice Mena on 11-14-2023 Estimated GFR (MDRD) Amer 127 mL/min >60 [facility] Comment on above: GFR Calc Estimated GFR (MDRD) Non-Af Amer 105 mL/min >60 [facility] Comment on above: Non- GFR Calc RBC Auto (Bld) [#/Vol]Ordere d By: Eunice Mena on 11-14-2023 RBC (Bld) [#/Vol] 4.45 10*6/uL 4.2-5.4 [facility] Serum or plasma calcium joanie urement (mass/volume)Ordered By: Eunice Mena on 11-14-2023 Calcium [Mass/Vol] 8.9 mg/dL 8.5-10.1 [facility] Serum or plasma creatinine m easurement (mass/volume)Ordered By: Eunice Mena on 11-14-2023 Creatinine [Mass/Vol] 0.66 mg/dL 0.55-1.02 [facility] Comment on above: The validity of the calculated GFR & GFRAA in patients over 70 years has not been determined. Clinical correlation is essential. Serum or plasma thyroid stim ulating hormone (TSH) measurement (units/volume)Ordered By: uEnice Mena on 11-14-2023 TSH Qn 1.24 uIU/mL 0.358-3.74 [facility] Serum or plasma thyroxine (T 4) measurement (mass/volume)Ordered By: Eunice Mena on 11-14-2023 T4 [Mass/Vol] 7.5 ug/dL 4.8-13.9 [facility] Serum or plasma urea nitroge n measurement (mass/volume)Ordered By: Eunice Mena on 11-14-2023 Urea nitrogen [Mass/Vol] 7 mg/dL 7-18 [facility] Thin prep Papanicolaou smear with manual screeningOrdered By: Eunice Mena on 11-14-2023 Thin prep Papanicolaou smear with manual screening 6 5-15 [facility] Basophil percentageOrdered B y: Ladarius Boyce on 08-03-2023 Chloride [Moles/Vol] 109 mmol/L 98-107 [facility] Cholesterol [Mass/Vol] 147 mg/dL <200 [facility] Comment on above: <200 mg/dL Desirable 200-240 mg/dL Borderline >240 mg/dL High Risk Glucose [Mass/Vol] 86 mg/dL 74-106 [facility] Potassium [Moles/Vol] 4.0 mmol/L 3.5-5.1 [facility] Sodium [Moles/Vol] 141 mmol/L 136-145 [facility] Triglyceride [Mass/Vol] 82 mg/dL <199 [facility] Comment on above: The drugs N-Acetylcy steine and Metamizole may falsely depress this assay.Serum Triglycerides Reference Interval Normal <150 mg/dL Borderline high 150 - 199 mg/dL High 200 - 499 mg/dL Very High > or = 500 mg/dL Laboratory - Chemistry and C hemistry - challengeOrdered By: Ladarius Boyce on 08-03-2023 CO2 [Moles/Vol] 27.0 mmol/L 21.0-32.0 [facility] Urea nitrogen/Creatinine [Mass ratio] 15.3 mg/mg 10-20 [facility] No Panel InformationOrdered By: Ladarius Boyce on 08-03-2023 Estimated GFR (MDRD) Amer 144 mL/min >60 [facility] Comment on above: GFR Calc Estimated GFR (MDRD) Non-Af Amer 119 mL/min >60 [facility] Comment on above: Non- GFR Calc Serum or plasma calcium joanie urement (mass/volume)Ordered By: Ladarius Boyce on 08-03-2023 Calcium [Mass/Vol] 8.8 mg/dL 8.5-10.1 [facility] Serum or plasma cholesterol in HDL measurement (mass/volume)Ordered By: Ladarius Boyce on 08-03-2023 Cholesterol in HDL [Mass/Vol] 46 mg/dL >40 [facility] Comment on above: The drugs N-Acetylcy steine and Metamizole may falsely depress this assay. Reference Range HDL <40 mg/dL Low HDL Cholesterol HDL >or= 60 mg/dL High HDL Cholesterol Serum or plasma cholesterol in VLDL measurement (mass/volume)Ordered By: Ladarius Boyce on 08-03-2023 Cholesterol in VLDL [Mass/Vol] 16 mg/dL 5-40 [facility] Serum or plasma creatinine m easurement (mass/volume)Ordered By: Ladarius Boyce on 08-03-2023 Creatinine [Mass/Vol] 0.59 mg/dL 0.55-1.02 [facility] Comment on above: The validity of the calculated GFR & GFRAA in patients over 70 years has not been determined. Clinical correlation is essential. Serum or plasma low density lipoprotein (LDL) cholesterol measurement (mass/volume)Ordered By: Ladarius Boyce on 08-03-2023 Cholesterol in LDL [Mass/Vol] 85 mg/dL 0-130 [facility] Serum or plasma urea nitroge n measurement (mass/volume)Ordered By: Ladarius Boyce on 08-03-2023 Urea nitrogen [Mass/Vol] 9 mg/dL 7-18 [facility] Thin prep Papanicolaou smear with manual screeningOrdered By: Ladarius Boyce on 08-03-2023 Thin prep Papanicolaou smear with manual screening 5 5-15 [facility] Absolute lymphocyte countOrd ered By: Nain Hackett on 07-15-2023 Lymphocytes Auto (Unsp spec) [#/Vol] 1.60 10*3/uL 0.83-4.51 [facility] Basophil percentageOrdered B y: Nain Hackett on 07-15-2023 Basophils/100 WBC (Bld) 0.6 % 0-[address] [facility] Chloride [Moles/Vol] 107 mmol/L 98-107 [facility] Eosinophils/100 WBC (Bld) 0.7 % 0-5 [facility] Glucose [Mass/Vol] 98 mg/dL 74-106 [facility] Neutrophils (Bld) [#/Vol] 6.4 10*3/uL 2.0-7.7 [facility] Neutrophils/100 WBC (Bld) 71.5 % 47-70 [facility] Potassium [Moles/Vol] 3.4 mmol/L 3.5-5.1 [facility] Sodium [Moles/Vol] 139 mmol/L 136-145 [facility] WBC (Bld) [#/Vol] 9.0 10*3/uL 4.4-11.0 [facility] Blood erythrocytes count (nu mber/volume)Ordered By: Nain Hackett on 07-15-2023 RBC (Bld) [#/Vol] 4.71 10*6/uL 4.2-5.4 [facility] Blood hemoglobin measurement (mass/volume)Ordered By: Nain Hackett on 07-15-2023 Hemoglobin (Bld) [Mass/Vol] 14.3 g/dL 12.0-15.0 [facility] Blood lymphocytes/100 leukoc ytesOrdered By: Nain Hackett on 07-15-2023 Lymphocytes/100 WBC (Bld) 17.8 % 19-41 [facility] Blood monocytes/100 leukocyt esOrdered By: Nain Hackett on 07-15-2023 Monocytes/100 WBC (Bld) 9.2 % 0-[address] [facility] Blood platelet mean volumeOr dered By: Nain Hackett on 07-15-2023 Platelet mean volume (Bld) [Entitic vol] 9.4 fL 6.2-12.0 [facility] Determination of erythrocyte mean corpuscular volume (MCV)Ordered By: Nain Hackett on 07-15-2023 MCV (RBC) [Entitic vol] 93.2 fL 81-[address] [facility] Hematocrit Auto (Bld) [Volum e fraction]Ordered By: Nain Hackett on 07-15-2023 Hematocrit (Bld) [Volume fraction] 43.9 % 37-47 [facility] Laboratory - Chemistry and C hemistry - challengeOrdered By: Nain Hackett on 07-15-2023 CO2 [Moles/Vol] 29.0 mmol/L 21.0-32.0 [facility] Magnesium [Mass/Vol] 2.4 mg/dL 1.6-2.6 [facility] Urea nitrogen/Creatinine [Mass ratio] 19.7 mg/mg 10-20 [facility] Laboratory - Hematology and Cell countsOrdered By: Nain Hackett on 07-15-2023 Erythrocyte distribution width (RBC) [Entitic vol] 44.3 fL 35.1-43.9 [facility] Erythrocyte distribution width (RBC) [Ratio] 13.0 % 11.6-14.6 [facility] Immature granulocytes/100 WBC (Bld) 0.200 % 0.0-0.9 [facility] Comment on above: IG% - Immature Granu locytes (promyelocytes, myelocytes and metamyelocytes) > 1% indicates that a LEFT SHIFT is Present. MCH (RBC) [Entitic mass] 30.4 pg 27.0-32.0 [facility] Nucleated RBC/100 WBC (Bld) [Ratio] 0 % 0-5 [facility] MCHC Auto (RBC) [Mass/Vol]Or dered By: Nain Hackett on 07-15-2023 MCHC (RBC) [Mass/Vol] 32.6 g/dL 32-36 [facility] No Panel InformationOrdered By: Nain Hackett on 07-15-2023 Estimated Creatinine Clearance Calc 84.12 ml/min [facility] Estimated GFR (MDRD) Amer 108 mL/min >60 [facility] Comment on above: GFR Calc Estimated GFR (MDRD) Non-Af Amer 89 mL/min >60 [facility] Comment on above: Non- GFR Calc Thyroid Stimulating Hormone (TSH) 2.23 uIU/mL 0.358-3.74 [facility] Troponin I High Sensitivity 4 pg/mL 3.0-54.0 [facility] Comment on above: Please Note: New Connie t Units and Gender Specific Reference Ranges. For more information see Policy Stat Procedure [place] High Sensitivity Troponin (TNIH) and attachments. Platelets bldOrdered By: Ky Hackett on 07-15-2023 Platelets (Bld) [#/Vol] 406 10*3/uL 150-450 [facility] Serum or plasma calcium joanie urement (mass/volume)Ordered By: Nain Hackett on 07-15-2023 Calcium [Mass/Vol] 8.7 mg/dL 8.5-10.1 [facility] Serum or plasma creatinine m easurement (mass/volume)Ordered By: Nain Hackett on 07-15-2023 Creatinine [Mass/Vol] 0.76 mg/dL 0.55-1.02 [facility] Comment on above: The validity of the calculated GFR & GFRAA in patients over 70 years has not been determined. Clinical correlation is essential. Serum or plasma urea nitroge n measurement (mass/volume)Ordered By: Nain Hackett on 07-15-2023 Urea nitrogen [Mass/Vol] 15 mg/dL 7-18 [facility] Thin prep Papanicolaou smear with manual screeningOrdered By: Nain Hackett on 07-15-2023 Thin prep Papanicolaou smear with manual screening 3 5-15 [facility] CBC + DIFFon 07-11-2023 Baso # 0.10 x10EE3/UL Normal 0.00 - 0.10 [facility] Comment on above: Performed By: #### 2 [id number] #### [facility],[address] [place] [address] 97047 Basophils/100 WBC (Bld) 1.0 % Normal 0.0 - 2.0 [facility] Comment on above: Performed By: #### 2 16743 #### [facility],[address] [place] [address] 60594 CBC + DIFF Normal [facility] Comment on above: Result Comment: CBC- COMPLETE BLOOD COUNT Performed By: #### 2 70284 #### [facility],[address] [place] [address] 11818 EO # 0.10 x10EE3/UL Normal 0.00 - 0.50 [facility] Comment on above: Performed By: #### 2 54727 #### [facility],[address] [place], [place] [id number] Eosinophils/100 WBC (Bld) 1.1 % Normal 0.0 - 7.0 [facility] Comment on above: Performed By: #### 2 70326 #### [facility],[address] [place] [address] Erythrocyte distribution width (RBC) [Ratio] 13.5 % Normal 12.0 - 15.6 [facility] Comment on above: Performed By: #### 2 87107 #### [facility],[address] [place] [address] Hematocrit (Bld) [Volume fraction] 46.2 % High 34.0 - 46.0 [facility] Comment on above: Performed By: #### 2 11911 #### [facility],[address] [place] [address] Hemoglobin (Bld) [Mass/Vol] 15.3 g/dL Normal 12.0 - 16.0 [facility] Comment on above: Performed By: #### 2 51754 #### [facility],[address] [place] [address] 40861 Lymph # 1.80 x10EE3/UL Normal 0.80 - 2.80 [facility] Comment on above: Performed By: #### 2 63343 #### [facility],[address] [place], [place] [address] Lymphocytes/100 WBC (Bld) 22.5 % Normal 20.0 - 45.0 [facility] Comment on above: Performed By: #### 2 94847 #### [place] [address] MANUAL DIFF N/A Normal [facility] Comment on above: Performed By: #### 2 88514 #### [facility],[address] [place] [address] 85330 MCH (RBC) [Entitic mass] 31 pg Normal 27 - 33 [facility] Comment on above: Performed By: #### 2 93156 #### [facility],[address] [place] [address] 32186 MCHC 33 X10 3 Normal 32 - 36 [facility] Comment on above: Performed By: #### 2 98279 #### [facility],[address] [place] [address] 42848 MCV (RBC) [Entitic vol] 92 fL Normal 80 - 99 [facility] Comment on above: Performed By: #### 2 58813 #### [facility],[address] [place] [address] 86689 Ector # 0.70 x10EE3/UL Normal 0.20 - 1.00 [facility] Comment on above: Performed By: #### 2 54203 #### [facility],[address] [place] [address] 79033 MONOS % 9.0 % Normal 0.0 - 10.0 [facility] Comment on above: Performed By: #### 2 40227 #### [facility],[address] [place] [address] 95909 Morphology Eric (Bld) [Interp] N/A Normal [facility] Comment on above: Result Comment: {CD] Performed By: #### 2 53162 #### [facility],[address] [place] [address] 91387 Neut # 5.30 x10EE3/UL Normal 1.50 - 7.10 [facility] Comment on above: Performed By: #### 2 45828 #### [facility],[address] [place] [address] 41360 Neutrophils/100 WBC (Bld) 66.4 % Normal 46.0 - 76.0 [facility] Comment on above: Performed By: #### 2 62146 #### [facility],[address] [place] [address] 61965 PLATELET 459 x10EE3/UL High 150 - 450 [facility] Comment on above: Performed By: #### 2 94837 #### [facility],[address] [place] [address] 95336 Platelet mean volume (Bld) [Entitic vol] 7.3 fL Normal 6.6 - 10.5 [facility] Comment on above: Result Comment: AUTO MATED DIFFERENTIAL Performed By: #### 2 26486 #### [facility],[address] [place] [address] 69809 RBC 5.01 x 10EE6/UL Normal 4.10 - 5.30 [facility] Comment on above: Performed By: #### 2 71832 #### [facility],[address] [place] [address] 63256 WBC 8.0 x 10EE3/UL Normal 4.5 - 10.8 [facility] Comment on above: Performed By: #### 2 04815 #### [facility],[address] [place] [address] 33440 CHEST 1 VIEWon 07-11-2023 CHEST 1 VIEW [place] [address] Patient: GRABIEL CRAVEN Phone#: : 1980 Age: 43 Gender: F Pt. Type: ER Account: [id number] Location: [facility] Ordering: KOBI CORTES Exam Date: 07/11/2023/19:05 Family Phys: Charge Code: [id number] Physician: Hughes Order #: [id number] Dose#: PROCEDURE: X-RAY CHEST 1 VIEW COMPARISON: None. INDICATIONS: Bradycardia. FINDINGS: LUNGS: Normal. No significant pulmonary parenchymal abnormalities. VASCULATURE: Normal. Unremarkable pulmonary vasculature. CARDIAC: Normal. No cardiac silhouette abnormality or cardiomegaly. MEDIASTINUM: Normal. No visible mass or adenopathy. PLEURA: Normal. No effusion or pleural thickening. BONES: Normal. No fracture or visible bony lesion. OTHER: Negative. CONCLUSION: No acute disease. Dictated by: Johnna Meyers MD on 07/12/2023 at 8:35 Approved by: Johnna Meyers MD on 07/12/2023 at 8:37 Normal [facility] CMP with eGFRon 07-11-2023 AGE 43 years Normal [facility] Comment on above: Performed By: #### 2 42686 #### [facility],[address] [place] [address] 79619 Albumin [Mass/Vol] 3.6 g/dL Normal 3.4 - 5.0 [facility] Comment on above: Performed By: #### 2 19312 #### [address] [address] Albumin/Globulin [Mass ratio] 0.8 {ratio} Low 0.9 - 1.6 [facility] Comment on above: Performed By: #### 2 37141 #### [facility],[address] [place] [address] 30995 ALK PHOS 108 U/L Normal 46 - 116 [facility] Comment on above: Performed By: #### 2 23352 #### [facility],[address] [place] [address] 82626 ALT [Catalytic activity/Vol] 28 U/L Normal 14 - 59 [facility] Comment on above: Performed By: #### 2 55313 #### [facility],[address] [place] [address] 70637 Anion gap [Moles/Vol] 13 mmol/L Normal 10 - 20 [facility] Comment on above: Performed By: #### 2 90665 #### [facility],[address] [place] [address] 87730 AST [Catalytic activity/Vol] 18 U/L Normal 13 - 39 [facility] Comment on above: Performed By: #### 2 14963 #### [facility],[address] [place] [address] 29275 B/C RATIO 13 ratio Normal 0 - 30 [facility] Comment on above: Performed By: #### 2 62340 #### [facility],[address] [place] [address] 04327 Bilirubin [Mass/Vol] 0.3 mg/dL Normal 0.2 - 1.0 [facility] Comment on above: Performed By: #### 2 71954 #### [facility],[address] [place] [address] 46435 Calcium [Mass/Vol] 9.3 mg/dL Normal 8.5 - 10.1 [facility] Comment on above: Performed By: #### 2 03347 #### [facility],[address] [place] [address] 28184 Chloride [Moles/Vol] 103 mmol/L Normal 98 - 107 [facility] Comment on above: Performed By: #### 2 15000 #### [facility],[address] [place] [address] 97301 CMP with eGFR Normal [facility] Comment on above: Result Comment: COMP REHENSIVE METABOLIC PANEL Performed By: #### 2 51471 #### [facility],[address] [place] [address] 94408 CO2 [Moles/Vol] 25.9 mmol/L Normal 21.0 - 32.0 [facility] Comment on above: Performed By: #### 2 06249 #### [facility],[address] [place] [address] 41580 Creatinine [Mass/Vol] 0.68 mg/dL Normal 0.55 - 1.02 [facility] Comment on above: Performed By: #### 2 89057 #### [facility],[address] [place] [address] 28753 GFR/1.73 sq M.predicted among non-blacks MDRD (S/P/Bld) [Vol rate/Area] mL/min/{1.73_m2} Normal 60 - 999 [facility] Comment on above: Performed By: #### 2 68332 #### [facility],[address] [place] [address] 37705 Result Comment: ACCO RDING TO THE NATIONAL KIDNEY DISEASE EDUCATION PROGRAM(NKDE), A NORMAL eGFR IS A VALUE GREATER THAN OR EQUAL TO 60 ML/MIN/1.73 SQ METERS. CHRONIC KIDNEY DISEASE: <60mL/MIN/1.73 SQ METERS KIDNEY FAILURE: <15mL/MIN/1.73 SQ METERS THIS TEST SHOULD ONLY BE USED FOR PATIENTS 18 YEARS OF AGE AND OLDER. Globulin (S) [Mass/Vol] 4.5 g/dL High 1.5 - 3.8 [facility] Comment on above: Performed By: #### 2 37991 #### [facility],[address] [place] [address] 76115 Glucose [Mass/Vol] 93 mg/dL Normal 74 - 106 [facility] Comment on above: Performed By: #### 2 04850 #### [facility],[address] [place] [address] 66417 Potassium [Moles/Vol] 3.6 mmol/L Normal 3.5 - 5.1 [facility] Comment on above: Performed By: #### 2 93096 #### [facility],[address] [place] [address] 63801 Protein [Mass/Vol] 8.1 g/dL Normal 6.4 - 8.2 [facility] Comment on above: Performed By: #### 2 52133 #### [address] [address] Sodium [Moles/Vol] 138 mmol/L Normal 136 - 145 [facility] Comment on above: Performed By: #### 2 42703 #### [facility],[address] [place] [address] 30240 Urea nitrogen [Mass/Vol] 9 mg/dL Normal 7 - 18 [facility] Comment on above: Performed By: #### 2 11524 #### [facility],[address] [place] [address] 96226 MAGNESIUMon 07-11-2023 Magnesium [Mass/Vol] 2.2 mg/dL Normal 1.8 - 2.4 [facility] Comment on above: Performed By: #### 2 78071 #### [facility],[address] [place], [place] [address] TROPONIN I, HIGH SENSITIVITY on 07-11-2023 HS TROPONIN 4.2 pg/mL Normal 0.0 - 51.4 [facility] Comment on above: Performed By: #### 2 93481 #### [facility],[address] [place], [place] [address] TSH W/ REFLEX TO FREE T4on 09-10-2022 TSH Qn 2.50 m[IU]/L Normal 0.34 - 5.60 [facility] Comment on above: Performed By: #### 2 58781 #### [facility],[address] [place] [address] 13637 Coronavirus 2019on 0 COVID 19 Result ESTIMATOR AND DRAFTER Normal Negative for COVID19 (SARS CoV2) by PCR. [facility] Comment on above: Result Comment: Nega tive for This test was developed and its performance characteristics determined by [facility]'s [facility] [place]. This test has been authorized by FDA under an Emergency Use Authorization (EUA). This test has been validated in accordance with the FDA's Guidance Document "Policy for Diagnostics Testing in Laboratories Certified to Perform High Complexity Testing under CLIA prior to Emergency use Authorization for Coronavirus Disease 2019 during the Public Health Emergency" issued on October 19, 2019. COVID19 (SARS This test was developed and its performance characteristics determined by [facility]'s [facility] [place]. This test has been authorized by FDA under an Emergency Use Authorization (EUA). This test has been validated in accordance with the FDA's Guidance Document "Policy for Diagnostics Testing in Laboratories Certified to Perform High Complexity Testing under CLIA prior to Emergency use Authorization for Coronavirus Disease 2019 during the Public Health Emergency" issued on October 19, 2019. CoV2) by PCR. This test was developed and its performance characteristics determined by [facility]'s [facility] [place]. This test has been authorized by FDA under an Emergency Use Authorization (EUA). This test has been validated in accordance with the FDA's Guidance Document "Policy for Diagnostics Testing in Laboratories Certified to Perform High Complexity Testing under CLIA prior to Emergency use Authorization for Coronavirus Disease 2019 during the Public Health Emergency" issued on October 19, 2019. Coronavirus 2019on 0 COVID 19 Source ESTIMATOR AND DRAFTER Normal [facility] Comment on above: Result Comment: Naso pharyngeal Corrected on 03/04 AT 0727: Previously reported as NASAL SWAB Swab Corrected on 03/04 AT 0727: Previously reported as NASAL SWAB Vital Signs Date Time Vital Sign Value Performing Clinician Faci lity 12-20-2024 10:11-0400 Diastolic blood pressure 70 mm[Hg] Maria Ines Tierney MD Work Phone: [facility] 12-20-2024 10:11-0400 Systolic blood pressure 105 mm[Hg] Maria Ines Tierney MD Work Phone: [facility] 12-20-2024 10:10-0400 Body height 175.3 cm Maria Ines Tierney MD Work Phone: [facility] 12-20-2024 10:10-0400 Body mass index (BMI) [Ratio] 22.59 kg/m2 Maria Ines Tierney MD Work Phone: [facility] 12-20-2024 10:10-0400 Body weight 69.4 kg Maria Ines Tierney MD Work Phone: [facility] 12-20-2024 10:10-0400 Heart rate 70 /min Maria Ines Tierney MD Work Phone: [facility] 12-20-2024 10:10-0400 Respiratory rate 18 /min Maria Ines Tierney MD Work Phone: [facility] 12-20-2024 10:10-0400 SaO2% (BldA) [Mass fraction] 96 % Maria Ines Tierney MD Work Phone: [facility] 12-13-2023 10:17-0400 Body height 162.56 cm No Primary Care Physician [facility] 12-13-2023 10:17-0400 Body mass index (BMI) [Ratio] 25.5 kg/m2 No Primary Care Physician [facility] 12-13-2023 10:17-0400 Body weight 67.58 kg No Primary Care Physician [facility] 12-13-2023 10:17-0400 Diastolic blood pressure 68 mm[Hg] No Primary Care Physician [facility] 12-13-2023 10:17-0400 Heart rate 70 /min No Primary Care Physician [facility] 12-13-2023 10:17-0400 Respiratory rate 14 /min No Primary Care Physician [facility] 12-13-2023 10:17-0400 Systolic blood pressure 105 mm[Hg] No Primary Care Physician [facility] 11-14-2023 16:28-0400 Body height 162.56 cm No Primary Care Physician [facility] 11-14-2023 16:28-0400 Body mass index (BMI) [Ratio] 25 kg/m2 No Primary Care Physician [facility] 11-14-2023 16:28-0400 Body temperature 98.4 [degF] No Primary Care Physician [facility] 11-14-2023 16:28-0400 Body weight 66.22 kg No Primary Care Physician [facility] 11-14-2023 16:28-0400 Diastolic blood pressure 62 mm[Hg] No Primary Care Physician [facility] 11-14-2023 16:28-0400 Heart rate 60 /min No Primary Care Physician [facility] 11-14-2023 16:28-0400 Respiratory rate 14 /min No Primary Care Physician [facility] 11-14-2023 16:28-0400 SaO2% (BldA) [Mass fraction] 98 % No Primary Care Physician [facility] 11-14-2023 16:28-0400 Systolic blood pressure 96 mm[Hg] No Primary Care Physician [facility] 11-14-2023 14:57-0400 Diastolic blood pressure 79 mm[Hg] No Primary Care Physician [facility] 11-14-2023 14:57-0400 Heart rate 74 /min No Primary Care Physician [facility] 11-14-2023 14:57-0400 SaO2% (BldA) [Mass fraction] 98 % No Primary Care Physician [facility] 11-14-2023 14:57-0400 Systolic blood pressure 115 mm[Hg] No Primary Care Physician [facility] 11-14-2023 14:48-0400 Body mass index (BMI) [Ratio] 25.2 kg/m2 No Primary Care Physician [facility] 11-14-2023 14:48-0400 Body weight 66.67 kg No Primary Care Physician [facility] 11-14-2023 14:48-0400 Respiratory rate 18 /min No Primary Care Physician [facility] 09-19-2023 10:08-0500 Body mass index (BMI) [Ratio] 26.4 kg/m2 No Primary Care Physician [facility] 09-19-2023 10:08-0500 Body weight 69.85 kg No Primary Care Physician [facility] 09-19-2023 10:08-0500 Diastolic blood pressure 75 mm[Hg] No Primary Care Physician [facility] 09-19-2023 10:08-0500 Heart rate 60 /min No Primary Care Physician [facility] 09-19-2023 10:08-0500 Respiratory rate 16 /min No Primary Care Physician [facility] 09-19-2023 10:08-0500 Systolic blood pressure 107 mm[Hg] No Primary Care Physician [facility] 08-03-2023 11:21-0500 Body height 162.56 cm No Primary Care Physician [facility] 08-03-2023 11:21-0500 Body mass index (BMI) [Ratio] 28.5 kg/m2 No Primary Care Physician [facility] 08-03-2023 11:21-0500 Body weight 75.29 kg No Primary Care Physician [facility] 08-03-2023 11:21-0500 Diastolic blood pressure 68 mm[Hg] No Primary Care Physician [facility] 08-03-2023 11:21-0500 Heart rate 66 /min No Primary Care Physician [facility] 08-03-2023 11:21-0500 Respiratory rate 16 /min No Primary Care Physician [facility] 08-03-2023 11:21-0500 Systolic blood pressure 105 mm[Hg] No Primary Care Physician [facility] 07-15-2023 20:24-0500 Diastolic blood pressure 57 mm[Hg] [facility] 07-15-2023 20:24-0500 Heart rate 72 /min [facility] 07-15-2023 20:24-0500 Respiratory rate 17 /min [facility] 07-15-2023 20:24-0500 SaO2% (BldA) [Mass fraction] 97 % [facility] 07-15-2023 20:24-0500 Systolic blood pressure 109 mm[Hg] [facility] 07-15-2023 17:46-0500 Body height 162.56 cm [facility] 07-15-2023 17:46-0500 Body mass index (BMI) [Ratio] 28.3 kg/m2 [facility] 07-15-2023 17:46-0500 Body temperature 98.2 [degF] [facility] 07-15-2023 17:46-0500 Body weight 74.79 kg [facility] Encounters Encounter Date Encounter Type Care Provider Facility Start: 05-14-2025 ambulatory [facility] Facility:[facility] Start: 12-20-2024 End: 12-20-2024 Patient encounter procedure Maria Ines Tierney MD Work Phone: Cardiology Comment on above: PFO (patent foramen ovale) (HCC) (Primary Dx); Congenital cardiovascular disorder (HCC); Palpitations Start: 12-20-2024 End: 12-20-2024 ambulatory [facility] Facility:[facility] Start: 12-19-2024 End: 12-19-2024 Telephone encounter Maria Ines Tierney MD Work Phone: Cardiology Comment on above: Appointment Start: 12-11-2024 End: 12-11-2024 ambulatory MARIA INES TIERNEY Facility:[facility] Start: 12-09-2024 End: 12-09-2024 ambulatory MARIA INES TIERNEY Facility:[facility] Start: 12-03-2024 End: 12-03-2024 Orders Only Thiago Gutierrez MD Work Phone: Cardiology Comment on above: Congenital cardiovas cular disorder (HCC) (Primary Dx) Start: 11-19-2024 End: 11-19-2024 Telephone encounter No One (Historical) Referring Physician Comment on above: Appointment Start: 11-12-2024 End: 11-12-2024 Telephone encounter [facility] Provider Cardiology Comment on above: Received Outside [facility] Start: 11-11-2024 End: 11-11-2024 ambulatory MARIA INES YOHANNES Facility:[facility] Start: 12-13-2023 End: 12-13-2023 ambulatory No Primary Care Physician [facility] Work Phone: Start: 12-13-2023 End: 12-13-2023 Patient encounter procedure No Primary Care Physician [facility] Work Phone: Start: 12-13-2023 End: 12-13-2023 Patient encounter procedure No Primary Care Physician [facility] Work Phone: Start: 11-14-2023 End: 11-14-2023 Patient encounter procedure No Primary Care Physician [facility] Work Phone: Start: 11-14-2023 End: 11-14-2023 ambulatory No Primary Care Physician [facility] Work Phone: Start: 11-14-2023 End: 11-14-2023 Patient encounter procedure No Primary Care Physician [facility] Work Phone: Start: 09-19-2023 End: 09-19-2023 Patient encounter procedure No Primary Care Physician [facility] Work Phone: Start: 08-07-2023 Non-patient / Non-visit No Alana aman Care Physician [facility] Work Phone: Start: 08-07-2023 End: 08-07-2023 ambulatory No Primary Care Physician [facility] Work Phone: Start: 08-07-2023 End: 08-07-2023 Patient encounter procedure No Primary Care Physician [facility] Work Phone: Start: 08-03-2023 End: 08-03-2023 Patient encounter procedure No Primary Care Physician [facility] Work Phone: Start: 08-03-2023 End: 08-03-2023 Patient encounter procedure No Primary Care Physician [facility] Work Phone: Start: 07-15-2023 End: 07-15-2023 Emergency department patient visit [facility] Work Phone: Start: 07-11-2023 End: 07-11-2023 Emergency department patient visit KOBI Fior CORTES [facility] Procedures Date Procedure Procedure Detail Performing Clinician Start: 08-07-2023 Radionuclide imaging of perfusion of myocardium under exercise stress No Primary Care Physician Start: 07-15-2023 Plain chest X-ray Plan of Treatment Date Care Activity Detail Author Start: 04-21-2025 Influenza vaccination Influenz a Vaccine (Season Ended) [facility] Start: 02-18-2025 End: 05-20-2025 CBC W Auto Differential panel - Blood COMPLETE BLOOD COUNT AND DIFFERENTIAL Lab Routine Congenital cardiovascular disorder (HCC) Expected: 02/18/2025, Expires: 05/20/2025 [facility] Comment on above: Expected: 02/18/2025 , Expires: 05/20/2025 Start: 02-18-2025 End: 05-20-2025 Comprehensive metabolic 2000 panel - Serum or Plasma COMPREHENSIVE METABOLIC PANEL Lab Routine Congenital cardiovascular disorder (HCC) Expected: 02/18/2025, Expires: 05/20/2025 [facility] Comment on above: Expected: 02/18/2025 , Expires: 05/20/2025 Start: 02-18-2025 End: 05-20-2025 Lipid 1996 panel - Serum or Plasma LIPID PANEL, FASTING Lab Routine Congenital cardiovascular disorder (HCC) Expected: 02/18/2025, Expires: 05/20/2025 [facility] Comment on above: Expected: 02/18/2025 , Expires: 05/20/2025 Start: 02-18-2025 End: 05-20-2025 Natriuretic peptide.B prohormone N-Terminal [Mass/volume] in Serum or Plasma NT PRO BNP Lab Routine Congenital cardiovascular disorder (HCC) Expected: 02/18/2025, Expires: 05/20/2025 [facility] Comment on above: Expected: 02/18/2025 , Expires: 05/20/2025 Start: 12-20-2024 End: 12-20-2024 Patient encounter procedure Cardiology Comment on above: Dx: patent foramen o russell patent foramen ovale PFO Start: 04-21-2024 Covid-19 Vaccine ( season) Covid-19 Vaccine () [facility] Start: 04-21-2024 Influenza vaccination Influenza Vacc ine (#1) [facility] Start: 09-22-2023 Patient referral [facility] Work Phone: Start: 07-15-2023 [facility] Start: 2022 Screening for malign ant neoplasm of breast Mammogram Screening [facility] Start: 2003 Screening for malign ant neoplasm of cervix Cervical Cancer Screening [facility] Start: 2001 Hepatitis B Vaccine (1 of 3 - 19+ 3-dose series) Hepatitis B Vaccine (1 of 3 - 19+ 3-dose series) [facility] Start: 2001 Urine microalbumin profile DTaP,Tdap,Td Vaccine (1 - Tdap) [facility] Start: 2000 Anxiety Screening Anxiety Screening [facility] Start: 2000 Depression Screening Depression Scre ening [facility] Start: 2000 Hepatitis C screening Hepatitis C Sc reening [facility] Start: 2000 HIV screening HIV Screening [facility] End: 12-03-2025 ECG COMPLETE ECG COMPLETE ECG Routine Congenital cardiovascular disorder (HCC) 1 Occurrences starting 12/03/2024 until 12/03/2025 [facility] Work Phone: Comment on above: 1 Occurrences starti ng 12/03/2024 until 12/03/2025 End: 12-03-2025 ECHO SPECIALIST COMPLEX ADULT CONGENITAL ECHO SPECIALIST COMPLEX ADULT CONGENITAL Cardiology Routine Congenital cardiovascular disorder (HCC) 1 Occurrences starting 12/03/2024 until 12/03/2025 [facility] Comment on above: 1 Occurrences starti ng 12/03/2024 until 12/03/2025 Patient Education Ventricular Arrhythmia [facility] Work Phone: Patient referral [facility] Work Phone: End: 01-02-2026 XR Chest PA and Lateral XR CHEST 2V FRONTAL/LAT Radiology Routine Congenital cardiovascular disorder (HCC) 1 Occurrences starting 12/03/2024 until 01/02/2026 [facility] Comment on above: 1 Occurrences starti ng 12/03/2024 until 01/02/2026 Payers Date Payer Category Payer Self-pay 2025 Unknown [id number] Unknown [facility] [employer] [id number] Unknown [id number] Social History Date Type Detail Facility Start: 07-15-2023 End: 11-14-2023 Tobacco smoking status NHIS Unknown if ever smoked [facility] Start: 1980 Sex Assigned At Female W [facility] Start: 1980 Sex assigned at Not on file [facility] Start: 12-20-2024 Gender identity Not on file [facility] Start: 12-20-2024 Tobacco smoking stat us KSIS Never smoked tobacco [facility] Start: 12-20-2024 Tobacco use and exposure Smokeless tobacco non-user [facility] Start: 12-20-2024 Alcoholic beverage intake Ex-drinker (finding) [facility] Start: 12-20-2024 History of Social function [facility] Goals Date Patient Goal Desired Activity /State Personal health goal Mental Status Date Assessment Result Facility 07-15-2023 Cognitive function Voice/Name [facility] Work Phone: Clinical Notes 11-12-2024 to 12-20-2024 Patient Maria Ines Marshall MD - 12/20/2024 10:30 AM EDTTelephone Encounter - Serge Segundo - 12/19/2024 10:52 AM EDAnali Iverson - 12/03/2024 2:16 PM EDT Note Date & Type Note Facility 12-20-2024 Instructions Maria Ines Tierney MD - 12/20/2024 11:09 AM EDT Stop aspirin Seek pulmonology regarding shortness of breath Consider stopping metoprolol as it may be causing shortness of breath and wheezing documented in this encounter [facility] 12-20-2024 History of Presen t illness Narrative Images from the original note were not included. [facility] [place] Isha Grimaldo Department of Cardiovascular Medicine SECTION OF INTERVENTIONAL CARDIOLOGY OUTPATIENT VISIT DATE December 19, 2024 OUTPATIENT VISIT TYPE NEW PRIMARY CARE PHYSICIAN: To use this Smartlink, specify the provider ID whose address you want to display, e.g., .PROVADDR[1 (where 1 is the provider ID). REFERRING PHYSICIAN: Reina Conrad [address] [facility] [address] CHIEF COMPLAINT: PFO Palpitations Fatigue shortness of breath HISTORY OF PRESENT ILLNESS: Ms. Craven is a 44 year old lady who is otherwise fit and healthy who has been sent along by a local heart team in [place] for further assessment of her most recently revealed PFO on surface echocardiography. She was found to have palpitations and occasional bigeminy about a year ago. She underwent echocardiography and nuclear stress perfusion testing all of which were normal. An incidental PFO was found. She was told she needed to stay on aspirin to prevent strokes and to come and seek further opinion regarding possible transcatheter PFO closure. She has never had a stroke. Since starting metoprolol for the palpitations and bigeminy, this has helped her palpitations but she is does describe the more fatigue and perhaps some more wheezing. NURSING INTAKE: She has been experiencing palpitations that led to x2 ER visits, which led to her following with Dr. Juan with [facility], who ordered an echocardiogram that revealed a PFO. She denies chest pain, syncope, claudication, leg swelling, cough, and wheezing. Diet / Nutrition: regular Weight: stable Exercise: no 11/11/24 STRESS TEST 11/11/24 ECHO PAST MEDICAL HISTORY Diagnosis Date Irregular heartbeat PFO (patent foramen ovale) (HCC) PAST SURGICAL HISTORY Procedure Laterality Date EXT HYSTERECTOMY,W/PARTIAL VAGINECTO HIATAL HERNIA REPAIR HX SOCIAL HISTORY Social History Tobacco Use Smoking status: Never Smokeless tobacco: Never Vaping Use Vaping status: Never Used Substance Use Topics Alcohol use: Not Currently Drug use: Never FAMILY HISTORY Problem Relation Age of Onset No Known Problems Mother No Known Problems Father No Known Problems Maternal Grandmother No Known Problems Maternal Grandfather No Known Problems Paternal Grandmother No Known Problems Paternal Grandfather ALLERGIES: ALLERGIES No Known Allergies MEDICATIONS: metoprolol succinate ER (TOPROL XL) 25 mg 24 hr tablet Take 1 tablet by mouth once daily. MULTIVITAMIN ORAL Take 1 tablet by mouth once daily. REVIEW OF SYSTEMS: GENERAL: no fever, no chills, and no change in weight HEENT: no headaches, no hearing loss, no difficulty swallowing, no visual changes SKIN: no rashes, no lesions, and no ulcers RESPIRATORY: shortness of breath and dyspnea on exertion CARDIOVASCULAR: dizziness and lightheadedness GASTROINTESTINAL: no abdominal pain, no nausea, no vomiting, no difficulty or painful swallowing, and no melanotic stools GENITOURINARY: no dysuria, no frequency, and no nocturia MUSCULOSKELETAL: no joint pain, no joint swelling, no muscle pain or myalgias, and no pain with walking NEUROLOGIC: no numbness, no tingling, and no sensation of pins and needles HEMATOLOGY: no bruising easily and no prolonged bleeding ENDOCRINE: no cold or heat intolerance, no polyuria, no polydipsia, no goiter, no diabetes, and no thyroid disease PSYCH: no mood disorders, no recent psychosocial stressors, and sleep disturbance PHYSICAL EXAMINATION: BP 105/70 Pulse 70 Resp 18 Ht 5' 9" (1.75m) Wt 153 lb (69.4kg) SpO2 96% BMI 22.58 kg/(m^2). General: Well appearing, in no acute distress, speaking in complete sentences. Skin: No clubbing, no cyanosis. Head/Eyes: Extra ocular movements intact Mouth: Teeth in good repair. Neck: No jugular venous distention, no carotid bruits, carotids have a normal upstroke, no palpable thyromegaly. Lungs: Clear to auscultation and no rales Heart: Regular rhythm, PMI not displaced, S1, S2 normal, no S3, no S4, no heaves, no rub and no murmur. PV Pulses:Pulses intact Abdomen: Soft, nontender, bowel sounds normal, no palpable organomegaly, no bruits. Extremities: No peripheral edema . Grade 2/4 distal pulses bilaterally. Edema Scale: No Musculoskeletal: Normal gait and ambulation Neuro: Oriented to time, place and person CARDIOVASCULAR MEDICINE TESTING: No Cardiovascular testing perfomed today. I have personally reviewed the Echocardiogram. 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 No indication for aspirin prophylaxis no PFO closure. PLAN AND RECOMMENDATIONS: I explained to her that the PFO occurs in 30% of the population and in the absence of a documented cryptogenic stroke there is no indication for transcatheter PFO closure nor aspirin prophylaxis. I also wonder whether the beta-kaci is causing her fatigue and exacerbating some possible underlying reactive airways. I have suggested she seek a pulmonology appointment and consider weaning herself off of beta-kaci. Maria Ines Tierney MD, PhD, FRACP Clinical Staff, Um Specialist feed crusher operator Director, Plaque Imaging Core Laboratory, [facility] Isha Grimaldo Department of Cardiovascular Medicine Heart [facility] [place] [facility] Desk [place] [address] Office This letter was dictated using a voice recognition program, please excuse any typos. I personally interviewed, confirmed and edited the above information as obtained by others. CONTACT INFORMATION: documented in this encounter [facility] 12-20-2024 Note HNO ID: [id number] Author: MARIA INES TIERNEY MD Service: ? Author Type: Physician Type: Progress Notes Filed: 12/20/2024 11:33 Note Text: [facility] [place] I[facility] Grimaldo Department of Cardiovascular Medicine SECTION OF INTERVENTIONAL CARDIOLOGY OUTPATIENT VISIT DATE December 19, 2024 OUTPATIENT VISIT TYPE NEW PRIMARY CARE PHYSICIAN: To use this Smartlink, specify the provider ID whose address you want to display, e.g., .PROVADDR[1 (where 1 is the provider ID). REFERRING PHYSICIAN: Reina Conrad [address] [facility] [address] CHIEF COMPLAINT: PFO Palpitations Fatigue shortness of breath HISTORY OF PRESENT ILLNESS: Ms. Craven is a 44 year old lady who is otherwise fit and healthy who has been sent along by a local heart team in [place] for further assessment of her most recently revealed PFO on surface echocardiography. She was found to have palpitations and occasional bigeminy about a year ago. She underwent echocardiography and nuclear stress perfusion testing all of which were normal. An incidental PFO was found. She was told she needed to stay on aspirin to prevent strokes and to come and seek further opinion regarding possible transcatheter PFO closure. She has never had a stroke. Since starting metoprolol for the palpitations and bigeminy, this has helped her palpitations but she is does describe the more fatigue and perhaps some more wheezing. NURSING INTAKE: She has been experiencing palpitations that led to x2 ER visits, which led to her following with Dr. Juan with [facility], who ordered an echocardiogram that revealed a PFO. She denies chest pain, syncope, claudication, leg swelling, cough, and wheezing. Diet / Nutrition: regular Weight: stable Exercise: no 11/11/24 STRESS TEST 11/11/24 ECHO PAST MEDICAL HISTORY Diagnosis Date Irregular heartbeat PFO (patent foramen ovale) (HCC) PAST SURGICAL HISTORY Procedure Laterality Date EXT HYSTERECTOMY,W/PARTIAL VAGINECTO HIATAL HERNIA REPAIR HX SOCIAL HISTORY Social History Tobacco Use Smoking status: Never Smokeless tobacco: Never Vaping Use Vaping status: Never Used Substance Use Topics Alcohol use: Not Currently Drug use: Never FAMILY HISTORY Problem Relation Age of Onset No Known Problems Mother No Known Problems Father No Known Problems Maternal Grandmother No Known Problems Maternal Grandfather No Known Problems Paternal Grandmother No Known Problems Paternal Grandfather ALLERGIES: ALLERGIES No Known Allergies MEDICATIONS: metoprolol succinate ER (TOPROL XL) 25 mg 24 hr tablet Take 1 tablet by mouth once daily. MULTIVITAMIN ORAL Take 1 tablet by mouth once daily. REVIEW OF SYSTEMS: GENERAL: no fever, no chills, and no change in weight HEENT: no headaches, no hearing loss, no difficulty swallowing, no visual changes SKIN: no rashes, no lesions, and no ulcers RESPIRATORY: shortness of breath and dyspnea on exertion CARDIOVASCULAR: dizziness and lightheadedness GASTROINTESTINAL: no abdominal pain, no nausea, no vomiting, no difficulty or painful swallowing, and no melanotic stools GENITOURINARY: no dysuria, no frequency, and no nocturia MUSCULOSKELETAL: no joint pain, no joint swelling, no muscle pain or myalgias, and no pain with walking NEUROLOGIC: no numbness, no tingling, and no sensation of pins and needles HEMATOLOGY: no bruising easily and no prolonged bleeding ENDOCRINE: no cold or heat intolerance, no polyuria, no polydipsia, no goiter, no diabetes, and no thyroid disease PSYCH: no mood disorders, no recent psychosocial stressors, and sleep disturbance PHYSICAL EXAMINATION: BP 105/70 Pulse 70 Resp 18 Ht 5' 9" (1.75m) Wt 153 lb (69.4kg) SpO2 96% BMI 22.58 kg/(m2). General: Well appearing, in no acute distress, speaking in complete sentences. Skin: No clubbing, no cyanosis. Head/Eyes: Extra ocular movements intact Mouth: Teeth in good repair. Neck: No jugular venous distention, no carotid bruits, carotids have a normal upstroke, no palpable thyromegaly. Lungs: Clear to auscultation and no rales Heart: Regular rhythm, PMI not displaced, S1, S2 normal, no S3, no S4, no heaves, no rub and no murmur. PV Pulses:Pulses intact Abdomen: Soft, nontender, bowel sounds normal, no palpable organomegaly, no bruits. Extremities: No peripheral edema . Grade 2/4 distal pulses bilaterally. Edema Scale: No Musculoskeletal: Normal gait and ambulation Neuro: Oriented to time, place and person CARDIOVASCULAR MEDICINE TESTING: No Cardiovascular testing perfomed today. I have personally reviewed the Echocardiogram. 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 No indication for aspirin prophylaxis no PFO closure. PLAN AND RECOMMENDATIONS: I explained to her that the PFO occurs in 30% of the population and in the absen (more content not included)... [facility] 12-19-2024 Telephone encounter Note Pt has been notified about the new appointment date and time. Pt's friend took the message and will make sure patient have the new information. [facility] 12-19-2024 Miscellaneous Notes Pt has been notified about the new appointment date and time. Pt's friend took the message and will make sure patient have the new information. documented in this encounter [facility] 12-03-2024 Note HNO ID: [id number] Author: ?, ?, ? Service: ? Author Type: ? Type: Progress Notes Filed: 12/03/2024 14:25 Note Text: [facility] 12-03-2024 History of Presen t illness Narrative documented in this encounter [facility] 11-19-2024 Telephone encounter Note Scheduled from referring physician box; New patient letter has been sent via mail for appt on 12/20/24 [facility] 11-19-2024 Miscellaneous Notes Scheduled from referring physician box; New patient letter has been sent via mail for appt on 12/20/24 documented in this encounter [facility] 11-19-2024 Telephone encounter Note Patient: Grabiel Craven Date of : 1980 Patient phone number: [phone] Referring Provider for the encounter: Reina Conrad Requesting Provider: Cardiology Reason for requesting visit (RFV/signs and symptoms/diagnosis): patent foramen ovale Person calling: self Return call to: self Medical Records/Insurance Card scanned into Convrrt: No Comments: n/a [facility] 11-19-2024 Miscellaneous Notes Patient: Grabiel Craven Date of : 1980 Patient phone number: [phone] Referring Provider for the encounter: Reina Conrad Requesting Provider: Cardiology Reason for requesting visit (RFV/signs and symptoms/diagnosis): patent foramen ovale Person calling: self Return call to: self Medical Records/Insurance Card scanned into Convrrt: No Comments: n/a documented in this encounter [facility] 11-12-2024 Telephone encounter Note Received outside records have been uploaded in Convrrt. Tiffany Carty November 12, 2024 10:05 AM\\ [facility] 11-12-2024 Miscellaneous Notes Received outside records have been uploaded in Convrrt. Tiffany Carty November 12, 2024 10:05 AM\\ documented in this encounter [facility] Evaluation note No assessment inform ation available [facility] Work Phone: Evaluation note Diagnosis Onset Date Dyspnea on exertion acute Heart palpitations acute PVCs (premature ventricular contractions) acute Chest pain in adult chronic [facility] Work Phone: Evaluation note* Diagnosis Onset Date Resolution Status Dyspnea on exertion acute PVCs (premature ventricular contractions) acute Chest pain in adult chronic Heart palpitations chronic Chest pain in adult chronic Heart palpitations chronic History of hypokalemia chron ic PFO (patent foramen ovale) c hronic Dizziness acute Heart palpitations chronic PFO (patent foramen ovale) c hronic BPPV (benign paroxysmal positional vertigo) acute [facility] Work Phone: Evaluation note* Diagnosis Onset Date Resolution Status Chest pain in adult chronic Heart palpitations chronic History of hypokalemia chron ic PFO (patent foramen ovale) c hronic Heart palpitations chronic PFO (patent foramen ovale) c hronic BPPV (benign paroxysmal positional vertigo) acute Heart palpitations chronic History of hypokalemia chron ic History of paroxysmal atrial tachycardia chronic PFO (patent foramen ovale) c hronic [facility] Work Phone: Evaluation note* Diagnosis 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 [facility] PFO (patent foramen ovale) (HCC)- 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 Palpitations documented [facility] this [facility]* Outpatient Procedure (Routine) - Closed Specialty Diagnoses / Procedures Referred By Coretta t Referred To Contact Diagnoses Congenital cardiovascular disorder (HCC) Procedures ECG COMPLETE ECG ROUTINE ECG W/LEAST 12 LDS W/I&R Thiago Gutierrez MD [address] [place] [address] Phone: tel: fax: [facility] Department [id number] Referral ID Status Reason Start Date Expiration Date V isits Requested Visits Authorized [id number] Closed Auto-Generated Referral Patient Cleared - Qualified for 501r Referred for GEM 12/11/2024 03/11/2025 1 1 [facility] Summary Purpose Family History No Family History Records FoundNo Family History Records FoundNo Family History Records FoundNo Family History Records Found Advance Directives No Advanced Directives Records Found Advance Directive Response Recorded Date/ Time Living Will No July 15, 2 023 6:01pm Power of Otm Consultant No July 15, 2023 6:01pm Advance Directive Response Recorded Date/ Time Living Will No July 15, 2 023 7:01pm Power of Otm Consultant No July 15, 2023 7:01pm Chief Complaint and Reason for Visit Chief Complaint chest pain Chief Complaint chest pain CP ([facility] 07/15) EORDERS CHEST PAIN, PALPITATIONS CHEST PAIN, PALPITATIONS Amb Documentation Reason for Visit Dyspnea on exertion Heart palpitations PVCs (premature ventricular contractions) Chest pain in adult Chief Complaint CP ([facility] 07/15) EORDERS CHEST PAIN, PALPITATIONS CHEST PAIN, PALPITATIONS Amb Documentation 6 W FU E ORDERS PCP wants her seen for Dizziness INNER EAR CONCERN/VERTIGO Reason for Visit Dyspnea on exertion PVCs (premature ventricular contractions) Chest pain in adult Heart palpitations Chest pain in adult Heart palpitations History of hypokalemia PFO (patent foramen ovale) Dizziness Heart palpitations PFO (patent foramen ovale) BPPV (benign paroxysmal positional vertigo) Chief Complaint 6 W FU E ORDERS PCP wants her seen for Dizziness INNER EAR CONCERN/VERTIGO 3 M FU E ORDERS Reason for Visit Chest pain in adult Heart palpitations History of hypokalemia PFO (patent foramen ovale) Heart palpitations PFO (patent foramen ovale) BPPV (benign paroxysmal positional vertigo) Heart palpitations History of hypokalemia History of paroxysmal atrial tachycardia PFO (patent foramen ovale) Additional Source Comments INFORMATION SOURCE (unrecogn ized section and content) DATE CREATED AUTHOR 03/13/2020 [facility] DATE CREATED AUTHOR AUTHOR'S ORGANIZ ATION 07/13/2023 [facility] DATE CREATED AUTHOR AUTHOR'S ORGANIZ ATION 12/24/2024 [facility] DATE CREATED AUTHOR AUTHOR'S ORGANIZ ATION 05/03/2025 [facility] Care Teams (unrecognized sec tion and content) Team Status: Active Member Role Status Dates Dr. Janet Hernandez MD Family Provider Active No Primary Care Physician Primary Care Provider Active Team Status: Inactive Member Role Status Dates Dr. Nain Hackett DO Emergency Provider Active No Primary Care Physician Primary Care Provider Active Team Status: Inactive Member Role Status Dates No Primary Care Physician Primary Care Provider, Refer ring Provider Active Dr. Ladarius Boyce MD Attending Provider Active Team Status: Active Member Role Status Dates No Primary Care Physician Primary Care Provider Active Dr. Ladarius Boyce MD Referring Provider, Other Provid er Active Dr. Rayray Rangel MD Attending Provider Active Team Status: Active Member Role Status Dates No Primary Care Physician Primary Care Provider Active Eunice Mena NP, ESTIMATOR AND DRAFTER-C Attending Provider Active Team Status: Inactive Member Role Status Dates Dr. Nain Hackett DO Attending Provider, Emergency P rovifrida Active No Primary Care Physician Primary Care Provider Active Team Status: Inactive Member Role Status Dates No Primary Care Physician Primary Care Provider Active Dr. Ladarius Boyce MD Attending Provider, Referring Pr ovider Active Team Status: Inactive Member Role Status Dates No Primary Care Physician Primary Care Provider, Refer ring Provider Active Eunice Mena ESTIMATOR AND DRAFTER, ESTIMATOR AND DRAFTER-C Attending Provider Active Team Status: Inactive Member Role Status Dates No Primary Care Physician Primary Care Provider, Refer ring Provider Active Akbar Ku PA PA Attending Provider Active Team Status: Inactive Member Role Status Dates No Primary Care Physician Primary Care Provider Active Eunice Mena ESTIMATOR AND DRAFTER, ESTIMATOR AND DRAFTER-C Attending Provider, Referring P alvaro Active Team Status: Active Member Role Status Dates Dr. Janet Hernandez MD Family Provider Active Dr. Reina Conrad PA-C Primary Care Provider Active Team Status: Inactive Member Role Status Dates Dr. Reina Conrad PA-C Primary Care Provider Active Dr. Ladarius Boyce MD Attending Provider, Referring Pr ovider Active Certified Green Building Engineer Relationship Specialty Start Date End Date Reina Conrad PA-C [address] [id number] Referring Family Medicine 11/07/24 Certified Green Building Engineer Relationship Specialty Start Date End Date Reina Conrad PA-C [address] [phone] Referring Family Medicine 11/07/24 Certified Green Building Engineer Relationship Specialty Start Date End Date Reina Conrad PA-C [address] [id number] Referring Family Medicine 11/07/24 Certified Green Building Engineer Relationship Specialty Start Date End Date Reina Conrad PA-C [address] [id number] Referring Family Medicine 11/07/24 Goals (unrecognized section and content) Goals may be documented in a n alternate sectionGoals may be documented in an alternate sectionGoals may be documented in an alternate sectionGoals may be documented in an alternate section Source Comments (unrecognize d section and content) In the event this informatio n is protected by the [facility] [place] Confidentiality of Alcohol and Drug Abuse Patient Records regulations: The Federal rules restrict any use of the information to criminally investigate or prosecute any alcohol or drug abuse patient.[facility] the event this information is protected by the Federal Confidentiality of Alcohol and Drug Abuse Patient Records regulations: The Federal rules restrict any use of the information to criminally investigate or prosecute any alcohol or drug abuse patient.[facility] the event this information is protected by the Federal Confidentiality of Alcohol and Drug Abuse Patient Records regulations: The Federal rules restrict any use of the information to criminally investigate or prosecute any alcohol or drug abuse patient.[facility] the event this information is protected by the Federal Confidentiality of Alcohol and Drug Abuse Patient Records regulations: The Federal rules restrict any use of the information to criminally investigate or prosecute any alcohol or drug abuse patient.[facility] the event this information is protected by the Federal Confidentiality of Alcohol and Drug Abuse Patient Records regulations: The Federal rules restrict any use of the information to criminally investigate or prosecute any alcohol or drug abuse patient.[facility] the event this information is protected by the Federal Confidentiality of Alcohol and Drug Abuse Patient Records regulations: The Federal rules restrict any use of the information to criminally investigate or prosecute any alcohol or drug abuse patient.[facility] Reason for Visit (unrecogniz ed section and content) Reason Comments Received Outside Medical Records Reason Comments Appointment FOR RECORDS PERTAINING TO PATIENTS WHO ARE OR HAVE BEEN ENROLLED IN A CHEMICAL DEPENDENCY/SUBSTANCEABUSE PROGRAM, SOME INFORMATION MAY BE OMITTED. This clinical summary was aggregated from multiple sources. Caution should be exercised in using it in the provision of clinical care. This summary normalizes information from multiple sources, and as a consequence, information in this document may materially change the coding, format and clinical context of patient data. In addition, data may be omitted in some cases. CLINICAL DECISIONS SHOULD BE BASED ON THE PRIMARY CLINICAL RECORDS. [facility]. provides no warranty or guarantee of the accuracy or completeness of information in this document.
--- NOTE | 2025-05-14 06:05 | CT_ITS ---
PROCEDURE: CHEST WITHOUT CONTRAST 05/14/2025 REASON FOR EXAM: EDUARDO Shortness of breath TECHNIQUE: Chest CT without contrast. Coronal and Sagittal reconstruction series were provided. One or more dose reduction techniques were used (e.g., Automated exposure control, adjustment of the mA and/or kV according to patient size, use of iterative reconstruction technique RADIATION DOSE SUMMARY: CTDlvol: 8 mGy DLP: 290 mGycm COMPARISON: None. FINDINGS: Thyroid gland: Negative. Lungs: Mild emphysematous changes. No pulmonary nodules or masses. Pleura: Negative for pleural effusion or pneumothorax. Airways: Imaged bronchi and trachea negative. Mediastinum: Negative for mediastinal mass. Lymph nodes: Negative for axillary, mediastinal or hilar adenopathy. Heart and Vasculature: Heart normal size. Negative for vascular calcifications of the thoracic aorta. Coronary Artery Calcifications: Negative for vascular calcifications of the coronary arteries Upper Abdomen: Upper abdomen negative. Hardware: None. Bones: Age-appropriate degenerative changes of the thoracic spine. CT/Chest without Contrast IMPRESSION: Negative for acute cardiopulmonary disease. Reading Location: [id number]
== END | disposition home or self-care (01) ==
PROVIDERS: PCP Physician Assistant; Referring Provider Physician Assistant; Visit Provider Physician Assistant
DX: R06.09 Other forms of dyspnea (principal)
CPT/HCPCS: 71250; 94060; 94726; 94729